=== PATIENT | female | born 1935 | race Caucasian/White ===

== ENCOUNTER 2017-04-17 11:15 | Inpatient (IN) ==
[2017-04-17] MEDS ORDERED: NS 1,000 ML IV ONE (11:42)
[2017-04-17] MEDS ORDERED: SALINE FLUSH 10ml SYRINGE IVF PRN (11:42)
--- NOTE | 2017-04-17 12:27 | Emergency Department Report ---
Weakness HPI - General Chief complaint: Weakness Stated complaint: weakness Time Seen by Provider: 04/17/17 11:30 Source: patient Mode of arrival: ambulatory Limitations: no limitations - History of Present Illness HPI Narrative: 81yo woman presented to the ER by for 'weakness'. Pt 'passed out' on Friday and fell; she had to be helped up by and son. Since then, pt has been weak, anorexic, and had trouble ambulating on her own. Pt refused to be evaluated; finally forced the issue today. Pt is livid about being in the ER. She does not want to be admitted, but would prefer a local admission rather than transport to [place]. Pt denies any new aches/pains today; has an extensive h/o pain and arthritis. Complaint: generalized weakness Onset (ago): day(s) (5) Duration: constant Location: generalized Migration: none Severity: severe Relieving factors: none Exacerbating factors: exertion Associated symptoms: loss of appetite - Related Data Home Medications Medication Instructions Recorded Confirmed Omeprazole 20 mg PO DAILY #0 11/21/11 04/17/17 Rosuvastatin [Crestor] 5 mg PO DAILY #0 11/21/11 04/17/17 Acetaminophen [Acetaminophen Extra 1,000 mg PO Q6H PRN 04/17/17 04/17/17 Strength] Amlodipine [Norvasc] 2.5 mg PO DAILY 04/17/17 04/17/17 Aspirin/Caffeine [Jenn Back & 2 tab PO Q4H PRN 04/17/17 04/17/17 Body Caplet] Atenolol/Chlorthalidone 1 tab PO DAILY 04/17/17 04/17/17 [Atenolol-Chlorthalidone 50-25] Hydrocodone/APAP 10/325 [[place] 1 tab PO QID PRN 04/17/17 04/17/17 10/325] Potassium Chloride [K-Tab ER] 20 meq PO BID 04/17/17 04/17/17 Allergies Allergy/AdvReac Type Severity Reaction Status Date / Time iodine Allergy RASH FROM Verified 04/17/17 11:39 IODINE PREP lovastatin Allergy myalgias Verified 04/17/17 11:39 simvastatin Allergy headache, Verified 04/17/17 11:39 myalgias Review of Systems All systems: reviewed and negative except as stated Constitutional: Reports: weakness. Denies: fever, chills, weight change, night sweats Neurological: Reports: as per HPI, weakness. Denies: headache, numbness, paresthesias, confusion, abnormal gait, vertigo [facility] Patient Stated Medical History Heart Murmur Yes Osteoarthritis Yes Clinic Medical History Hypokalemia (Acute Medical) Potassium 2.2 on admission Weakness (Acute Medical) Aortic stenosis (Chronic Medical) Syncope (Acute Medical) Hyponatremia (Acute Medical) Sodium 122 on admission - Social History Smoking status: Never smoker Physical Exam - Limitations Limitations: no limitations - General General appearance: alert, in no apparent distress, cachectic - Normal Exams: Head:: Normocephalic without trauma Eyes:: Pupils are PERRLA w/ EOMI, No scleral icterus, irritation, or foreign bodies noted ENMT:: No facial trauma, nasal exudates, pharyngeal erythema, or exudates are noted Neck:: Full range of motion, without adenopathy Chest/Respirations:: Clear all benites, with good airflow, and symmetry bilaterally Lymphatic:: No lymphadenopathy Musculoskeletal:: No tenderness, or deformity noted Integumentary:: No rashes, hives, or bruising noted Neurological:: Patient is alert, and oriented - ENT ENT exam: Present: mucous membranes dry - Cardiovascular Cardiovascular exam: Present: regular rate, normal rhythm, systolic murmur ( Holosystolic at right sternal border) - Psychiatric Psychiatric exam: Present: other (somnolent) Course - Consultations Consultation #1: [facility]: No pt by that name. Time: 12:25 Consultation #2: Dr. Blas: Pt will need admission to complete the workup to get echo and determine treatment. Requests admission to medicine. Presented to the ER prior to admission: pt has severe . Will need an echo while admitted. Time: 12:27 Consultation #3: Hospitalist: Will admit for further eval/treatment. Time: 12:38 Vital Signs Temperature 98.4 F 04/17/17 11:18 Pulse Rate 52 L 04/17/17 11:18 Respiratory Rate 16 04/17/17 11:18 Blood Pressure 144/67 H 04/17/17 11:18 Pulse Oximetry 95 04/17/17 11:18 Temperature 97.7 F 04/18/17 23:57 Pulse Rate 55 L 04/19/17 00:00 Respiratory Rate 16 04/18/17 23:57 Blood Pressure 94/52 04/18/17 23:57 Pulse Oximetry 97 04/18/17 23:57 Weakness - Differential Diagnosis Differential diagnosis: Likely: acute myocardial infarction, anemia, hypothyroidism, sepsis, dehydration - Medical Records Attestation: I reviewed the patient's medical records. - Lab Data Attestation: I reviewed the patient's lab results. Result diagrams: 04/19/17 04:29 04/19/17 04:29 Lab Results 04/17/17 04/17/17 04/17/17 Range/Units 11:53 11:53 11:53 WBC 7.6 (4.5-11.0) T/MM3 RBC 3.95 L (4.00-5.20) M/MM3 Hgb 11.3 L (12-16) GM/DL Hct 33.4 L (36-46) % MCV 84.6 (80-100) UM3 MCH 28.6 (26-34) UUG MCHC 33.8 (31-37) GM/DL RDW Std Deviation 40.3 (36.9-50.2) FL Plt Count 265 (130-400) T/MM3 MPV 8.6 L (9.4-12.4) UM3 Immature Gran % (Auto) 0.3 (0.0-0.5) % Neut % (Auto) 72.2 H (33-66) % Lymph % (Auto) 16.4 L (23-45) % Brule % (Auto) 11.0 H (0-9.0) % Eos % (Auto) 0.1 (0-4) % Baso % (Auto) 0.0 (0-2) % Neut # (Auto) 5.5 (1.8-7.7) T/MM3 Lymph # (Auto) 1.3 (1-4.8) T/MM3 Brule # (Auto) 0.8 (0-0.8) T/MM3 Eos # (Auto) 0.0 (0-0.5) T/MM3 Baso # (Auto) 0.0 (0-0.2) T/MM3 Abs Immat Gran (auto) 0.02 (0.00-0.03) T/MM3 D-Dimer 211 (0-230) NG/ML Turbidity < 20 (0-20) Sodium 122 L (134-144) MEQ/L Potassium 2.2 L* (3.6-5) MEQ/L Chloride 81 L (98-107) MEQ/L Carbon Dioxide 29 (22-30) MEQ/L Anion Gap 12 (5-15) MEQ/L BUN 22.0 H (7-17) MG/DL Creatinine 0.9 (0.7-1.2) MG/DL GFR Calculation 60 BUN/Creatinine Ratio 24 (6-26) RATIO Glucose 126 H (65-110) MG/DL Calculated Osmolality 241 L (261-280) MOSM/KG Calcium 10.2 (8.4-10.2) MG/DL Magnesium (1.6-2.3) MG/DL Total Bilirubin 0.60 (0.20-1.30) MG/DL Icterus Index < 2 (0-7) AST 29 (14-36) U/L ALT 33 (9-52) U/L Alkaline Phosphatase 55 (38-126) U/L Creatine Kinase 85 (30-135) U/L Troponin I 0.111 (0-0.12) ng/ml B-Natriuretic Peptide 540 H (0-175) pg/mL Total Protein 6.7 (6.3-8.2) G/DL Albumin 4.2 (3.5-5.0) G/DL Globulin 2.5 (2.4-3.6) G/DL Albumin/Globulin Ratio 1.7 (1.1-2.2) RATIO Plasma Lactate 1.2 (0.6-2.2) MMOL/L TSH 1.65 (0.47-4.68) MIU/L Specimen Hemolysis 19 (0-25) Ur Collection Type Urine Color (YELLOW) Urine Clarity Urine pH (5.0-8.0) Ur Specific [place] (1.015-1.025) Urine Protein (NEGATIVE) Urine Glucose (UA) (NEGATIVE) Urine Ketones (NEGATIVE) Urine Occult Blood (NEGATIVE) Urine Nitrate (NEGATIVE) Urine Bilirubin (NEGATIVE) Urine Urobilinogen (NORMAL) EU/DL Ur Leukocyte Esterase (NEGATIVE) Urinalysis Comment 04/17/17 04/17/17 Range/Units 11:53 12:47 WBC (4.5-11.0) T/MM3 RBC (4.00-5.20) M/MM3 Hgb (12-16) GM/DL Hct (36-46) % MCV (80-100) UM3 MCH (26-34) UUG MCHC (31-37) GM/DL RDW Std Deviation (36.9-50.2) FL Plt Count (130-400) T/MM3 MPV (9.4-12.4) UM3 Immature Gran % (Auto) (0.0-0.5) % Neut % (Auto) (33-66) % Lymph % (Auto) (23-45) % Brule % (Auto) (0-9.0) % Eos % (Auto) (0-4) % Baso % (Auto) (0-2) % Neut # (Auto) (1.8-7.7) T/MM3 Lymph # (Auto) (1-4.8) T/MM3 Brule # (Auto) (0-0.8) T/MM3 Eos # (Auto) (0-0.5) T/MM3 Baso # (Auto) (0-0.2) T/MM3 Abs Immat Gran (auto) (0.00-0.03) T/MM3 D-Dimer (0-230) NG/ML Turbidity (0-20) Sodium (134-144) MEQ/L Potassium (3.6-5) MEQ/L Chloride (98-107) MEQ/L Carbon Dioxide (22-30) MEQ/L Anion Gap (5-15) MEQ/L BUN (7-17) MG/DL Creatinine (0.7-1.2) MG/DL GFR Calculation BUN/Creatinine Ratio (6-26) RATIO Glucose (65-110) MG/DL Calculated Osmolality (261-280) MOSM/KG Calcium (8.4-10.2) MG/DL Magnesium 2.0 (1.6-2.3) MG/DL Total Bilirubin (0.20-1.30) MG/DL Icterus Index (0-7) AST (14-36) U/L ALT (9-52) U/L Alkaline Phosphatase (38-126) U/L Creatine Kinase (30-135) U/L Troponin I (0-0.12) ng/ml B-Natriuretic Peptide (0-175) pg/mL Total Protein (6.3-8.2) G/DL Albumin (3.5-5.0) G/DL Globulin (2.4-3.6) G/DL Albumin/Globulin Ratio (1.1-2.2) RATIO Plasma Lactate (0.6-2.2) MMOL/L TSH Cancelled (0.47-4.68) MIU/L Specimen Hemolysis (0-25) Ur Collection Type Urine, clean catch Urine Color Yellow (YELLOW) Urine Clarity Clear Urine pH 6.5 (5.0-8.0) Ur Specific [place] 1.010 L (1.015-1.025) Urine Protein Negative (NEGATIVE) Urine Glucose (UA) Negative (NEGATIVE) Urine Ketones Negative (NEGATIVE) Urine Occult Blood Negative (NEGATIVE) Urine Nitrate Negative (NEGATIVE) Urine Bilirubin Negative (NEGATIVE) Urine Urobilinogen 0.2 (NORMAL) EU/DL Ur Leukocyte Esterase Negative (NEGATIVE) Urinalysis Comment Microscopic not ind. - Radiology Data Attestation: I reviewed the patient's radiology results. FINDINGS: The lungs are clear. There is no abnormal airspace opacity, pleural effusion or pneumothorax identified. Overlying monitoring leads. The heart size, pulmonary vasculature and mediastinum are within normal limits. No significant skeletal abnormality is seen. IMPRESSION: No acute cardiopulmonary abnormality. - EKG Data EKG #1 EKG attestation: Yes: I reviewed and interpreted this EKG. EKG shows normal: sinus rhythm, axis, intervals Rate: bradycardia Voltage: c/w LVH Interpretation: nonspecific ST-T wave changes Disposition Clinical Impression: Hypokalemia, Weakness Aortic stenosis Qualifiers: Cardiac valve disease etiology: etiology unspecified Qualified Code(s): I35.0 - Nonrheumatic aortic (valve) stenosis [place] [facility] [place] Condition: Stable Time of Disposition: 12:47 - Seen By: physician
[2017-04-17] MEDS ORDERED: POTASSIUM CHLORIDE INJ 40 MEQ in NS 1,000 ML IV ONE (12:31)
--- NOTE | 2017-04-17 13:06 | XRay Report ---
Indication: Weakness PROCEDURE: XR chest 1V: Encounter: Initial Comparison: None FINDINGS: The lungs are clear. There is no abnormal airspace opacity, pleural effusion or pneumothorax identified. Overlying monitoring leads. The heart size, pulmonary vasculature and mediastinum are within normal limits. No significant skeletal abnormality is seen. IMPRESSION: No acute cardiopulmonary abnormality. .
--- OUTSIDE RECORDS SUMMARY | 2017-04-17 13:14 | External Medical Summary | Referral Summary ---
:1935 Author Organization [facility] Address [address] [place] [address] [place] [id number] Care Team Providers Name Role Phone Ole Alatorre Primary Care Physician Encounter VC Date(s): 11/11/14 - 11/11/14 [facility] [place] [phone] Discharge Diagnosis: Anemia of chronic disease Discharge Diagnosis: GERD Discharge Diagnosis: Need for pneumococcal vaccine Discharge Diagnosis: Obesity Discharge Diagnosis: Hypokalemia Discharge Diagnosis: Osteoarthritis Discharge Diagnosis: Benign essential hypertension Discharge Diagnosis: Mixed hyperlipidemia Discharge Disposition: 01-Home or Self Care Attending Physician: Belle Whyte APRN Admitting Physician: Belle Whyte APRN Vital Signs Most recent to oldest [Reference Range]: 1 Temperature Tympanic [36.6-38.1 degC] 35.7 degC *LOW* (11/11/14 8:56 AM) Peripheral Pulse Rate [60-100 bpm] 60 bpm (11/11/14 8:56 AM) Blood Pressure [90-140/60-90 mmHg] 134/70 mmHg (11/11/14 8:56 AM) Problem List Condition Effective Dates Status Health Status Informant Anemia of chronic disease(Confirmed) Active Aortic valve disorder Active (disorder)(Confirmed) Benign essential hypertension Active (disorder)(Confirmed) Cardiomegaly (disorder)(Confirmed) Active section(Confirmed)1 Resolved Constipation (disorder)(Confirmed) Active GERD(Confirmed) Active Hyperlipidemia(Confirmed) Resolved Hypertension(Confirmed) Resolved Hypokalemia(Confirmed) Active Mixed hyperlipidemia Active (disorder)(Confirmed) Obesity(Confirmed) Active patient Osteoarthritis(Confirmed) Active Pulmonary HTN Severe(Confirmed) Active 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) Total hip replacement - 2006 Resolved Right(Confirmed) 1x4 Allergies, Adverse Reactions, Alerts Substance Reaction Severity Status lovastatin Active simvastatin Active Medications amLODIPine 2.5 mg oral tablet 1 tabs, Oral, Daily, # 90 tabs, 3 Refill(s), Pharmacy: [facility], 1 tabs Oral Daily Start Date: 05/13/14 Status: OrderedAspir 81 81 mg, Oral, Daily, 1 tab, 0 Refill(s) Start Date: 11/11/14 Status: Orderedatenolol-chlorthalidone 50 mg-25 mg oral tablet 1 tabs, Oral, Daily, # 90 tabs, 3 Refill(s), Pharmacy: [facility] Start Date: 01/23/15 Status: OrderedCrestor 5 mg oral tablet 1 tabs, Oral, Daily, DUE FOR LAB/APPT IN MAY, # 90 tabs, 3 Refill(s), Pharmacy: [facility],1 tabs Oral Daily,x90 days,Instr:DUE FOR LAB/APPT IN MAY Start Date: 05/13/14 Stop Date: 05/08/15 Status: OrderedNorco 10 mg-325 mg oral tablet 1-2, Oral, q6hr, as needed for pain, not to exceed 4000 mg acetaminophen per day MONTH SUPPLY, # 240 tabs, 0 Refill(s) Start Date: 05/22/15 Status: Orderedomeprazole 20 mg oral delayed release tablet 20 mg 1 tabs, Oral, Daily, # 90 tabs, 3 Refill(s), Pharmacy: [facility], 1 tabs Oral Daily Start Date: 01/23/15 Status: Orderedpotassium chloride 20 mEq oral tablet, extended release 20 mEq 1 tabs, Oral, Daily, # 90 tabs, 3 Refill(s), Pharmacy: [facility], 1 tabs Oral Daily Start Date: 01/23/15 Status: OrderedStool Softner Stool Softner, 4 tabs, Oral, Daily, PRN for constipation, 0 Refill(s) Start Date: 12/16/14 Status: Ordered Results No data available for this section Immunizations Vaccine Date Refusal Reason tetanus/diphth/pertuss (Tdap) adult/adol 03/24/12 influenza virus vaccine, inactivated 04/24/15 influenza virus vaccine, inactivated 05/13/14 influenza virus vaccine, live 11/26/13 influenza virus vaccine, live 03/13/12 pneumococcal 13-valent conjugate vaccine 11/11/14 pneumococcal 23-polyvalent vaccine 03/16/09 tetanus-diphth toxoids (Td) adult/adol 08/06/99 Procedures Procedure Date Related Diagnosis Body Site 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 Continue to monitor. Benign essential hypertension Continue current medications without change. Goal blood pressure patient is less than 140/90. GERD Continue current regimen. Encouraged patient to continue to work on healthy eating avoiding foods exacerbate her symptoms. Hypokalemia Continue potassium area discussed better ways to take it versus switching to K fizzy. Patient wants to continue current prescription for now. Mixed hyperlipidemia Patient had approximately 4 months of Crestor left. She wants to finish that before changing. Requested she call the office on a prescription is near empty and will change t o Lipitor 20 mg a day. Has had myalgias in the past to lovastatin and simvastatin. CDM report card completed and reviewed with patient. Last labs reviewed with patient. Recommendations discussed. Copy provided. Plan follow-up in 6- 7 months with fasting lipids CMP and CBC prior to office visit. Need for pneumococcal vaccine Counseled on Prevnar 13. Given by nursing. Patient not interested in Zostavaxor further preventative care. Ordered: pneumococcal 13-valent conjugate vaccine, 0.5 mL, IntraMuscular, Daily, Order Duration: 1 doses, First Dose: 11/11/14 9:30:00 CDT, Stop Date: 11/12/14 8:59: 00 CDT, Form: Syringe Obesity Encourage a 10 pound weight loss in the next 6 months. Osteoarthritis Continue hydrocodone. Prescription provided. Orders: HYDROcodone-acetaminophen, 1-2, Oral, q6hr, as needed for pain, not to exceed 4000 mg acetaminophen per day, # 240 tabs, 0 Refill(s)
--- OUTSIDE RECORDS SUMMARY | 2017-04-17 13:14 | External Medical Summary | Referral Summary ---
:1935 Author Organization [facility] Address [address] [place] [address] Care Team Providers Name Role Phone Ole Alatorre Primary Care Physician Encounter VC Date(s): 12/16/14 - 12/16/14 [facility] [address] [place] [address]- [place] Discharge Diagnosis: Mitral valve prolapse Discharge Diagnosis: Pulmonary hypertension Discharge Diagnosis: Hypertension Discharge Diagnosis: Dyslipidemia Discharge Diagnosis: Aortic valve disorder Discharge Disposition: 01-Home or Self Care Attending Physician: Levy Phoenix MD Admitting Physician: Levy Phoenix MD Vital Signs Most recent to oldest [Reference Range]: 1 Peripheral Pulse Rate [60-100 bpm] 60 bpm (12/16/14 11:03 AM) Blood Pressure [90-140/60-90 mmHg] 112/66 mmHg (12/16/14 11:03 AM) Problem List Condition Effective Dates Status [...] Daily, # 90 tabs, 3 Refill(s), Pharmacy: [facility], 1 tabs Oral Daily Start Date: 05/13/14 Status: OrderedAspir 81 81 mg, Oral, Daily, 1 tab, 0 Refill(s) Start Date: 11/11/14 Status: Orderedatenolol-chlorthalidone 50 mg-25 mg oral tablet 1 tabs, Oral, Daily, # 90 tabs, 3 Refill(s), Pharmacy: [facility] Start Date: 01/23/15 Status: OrderedCrestor 5 mg oral tablet 1 tabs, Oral, Daily, DUE FOR LAB/APPT IN MAY, # 90 tabs, 3 Refill(s), Pharmacy: [facility],1 tabs Oral Daily,x90 days,Instr:DUE FOR LAB/APPT IN MAY Start Date: 05/13/14 Stop Date: 05/08/15 Status: OrderedNorco 10 mg-325 mg oral tablet 1-2, Oral, q6hr, as needed for pain, not to exceed 4000 mg acetaminophen per day , # 240 tabs, 0 Refill(s) Start Date: 03/28/15 Status: Orderedomeprazole 20 mg oral delayed release tablet 20 mg 1 tabs, Oral, Daily, # 90 tabs, 3 Refill(s), Pharmacy: [facility], 1 tabs Oral Daily Start Date: 01/23/15 Status: Orderedpotassium chloride 20 mEq oral tablet, extended release 20 mEq 1 tabs, Oral, Daily, # 90 tabs, 3 Refill(s), Pharmacy: [facility], 1 tabs Oral Daily Start Date: 01/23/15 Status: OrderedStool Softner Stool Softner, 4 tabs, Oral, Daily, PRN for constipation, 0 Refill(s) Start Date: 12/16/14 Status: Ordered Results No data available for this section Immunizations Vaccine Date Refusal Reason tetanus/diphth/pertuss (Tdap) adult/adol 03/24/12 influenza virus vaccine, inactivated 05/13/14 influenza virus vaccine, live 04/27/13 influenza virus vaccine, live 03/13/12 pneumococcal 13-valent [...] smoker Assessment and Plan Extracted from: Title: Ambulatory Patient Education Author: Levy Phoenix MD Date: 12/16/14 Family Medicine Coronary Artery Disease, Risk Factors Research has shown that the risk of developing coronary artery disease (CAD) and having a heart attack increases with each factor you have. RISK FACTORS YOU CANNOT CHANGE Your age. Your risk goes up as you get older. Most heart attacks happen to people over the age of 65. Gender. Men have a greater risk of heart attack than women, and they have attacks earlier in life. However, women are more likely to from a heart attack. Heredity. Children of parents with heart disease are more likely to develop it themselves. Race. Americans and other ethnic groups have a higher risk, possibly because of high blood pressure, a tendency toward obesity, and diabetes. Your family. Most people with a strong family history of heart disease have one or more other risk factors. RISK FACTORS YOU CAN CHANGE Exposure to tobacco smoke. Even secondhand smoke greatly increases the risk for heart disease. High blood cholesterol may be lowered with changes in diet, activity, and medicines. High blood pressure makes the heart work harder. This causes the heart muscles to become thick and, eventually, weaker. It also increases your risk of stroke, heart attack, and kidney or heart failure. Physical inactivity is a risk factor for CAD. Regular physical activity helps prevent heart and blood vessel disease. Exercise helps control blood cholesterol, diabetes, obesity, and it may help lower blood pressure in some people. Excess body fat, especially belly fat, increases the risk of heart disease and stroke even if there are no other risk factors. Excess weight increases the heart's workload and raises blood pressure and blood cholesterol. Diabetes seriously increases your risk of developing CAD. If you have diabetes, you should work with your caregiver to manage it and control other risk factors. OTHER RISK FACTORS FOR CAD How you respond to stress. Drinking too much alcohol may raise blood pressure, cause heart failure, and lead to stroke. Total cholesterol greater than 200 milligrams. HDL (good) cholesterol less than 40 milligrams. HDL helps keep cholesterol from building up in the anderson of the arteries. PREVENTING CAD Maintain a healthy weight. Exercise or do physical activity. Eat a heart-healthy diet low in fat and salt and high in fiber. Control your blood pressure to keep it below 120 over 80. Keep your cholesterol at a level that lowers your risk. Manage diabetes if you have it. Stop smoking. Learn how to manage stress. HEART SMART SUBSTITUTIONS Instead of whole or 2% milk and cream, use skim milk. Instead of fried foods, eat baked, steamed, boiled, broiled, or microwaved foods. Instead of lard, butter, palm and coconut oils, cook with unsaturated vegetable oils, such as corn, olive, canola, safflower, sesame, soybean, sunflower, or peanut. Instead of fatty cuts of meat, eat lean cuts of meat or cut off the fatty parts. Instead of 1 whole egg in recipes, use 2 egg whites. Instead of sauces, butter, and salt, season vegetables with herbs and spices. Instead of regular hard and processed cheeses, eat low-fat, low-sodium cheeses. Instead of salted potato chips, choose low-fat, unsalted tortilla and potato chips and unsalted pretzels and popcorn. Instead of sour cream and mayonnaise, use plain low-fat yogurt, low-fat cottage cheese, or low-fat or "light" sour cream. FOR MORE INFORMATION National [employer] [place]: www.nhlbi.nih.gov/health/hearttruth [place] [employer]: www.heart.org/HEARTORG Document Released: 08/08/2004 Document Revised: 08/10/2012 Document Reviewed: 08/03/2008 Exit[employer] Patient Information 2014 [employer] [facility]. No follow up information was provided. Extracted from: Title: Office Visit Note Author: Levy Phoenix MD Date: 12/16/14 Assessment/Plan 1.Aortic valve disorder Mild aortic stenosis, with last echocardiogram from November 2013 with mean gradient of 14 mmHg. No current symptoms, and we discussed the natural history of aortic stenosis as well as symptoms to watch for. 2.Mitral valve prolapse Mild mitral prolapse with trace mitral regurgitation, currently free of any symptoms of chest pain or palpitations. We also discussed the natural history of mitral valve prolapse. 3.Pulmonary hypertension Mild pulmonary hypertension on last echocardiogram , though he previously had been severe on echocardiogram from 2013. She has been free of any symptoms. There has been s ome chamber enlargements of the left and right atria, and right ventricle. No obvious is here PFO seen on prior echocardiograms, but this will be a consideration for the future if pulmonate pressures worsen. 4.Dyslipidemia Cholesterol has been reasonable. Continue Crestor for now. Heart healthy eating and consistent exercise discussed. Exercise has been limited by joint pains. 5.Hypertension Blood pressure has been under good control. Continue current medical therapy. Low-salt diet and consistent exercise encouraged. Referrals to Other Providers Referred by: Levy Phoenix MD
--- OUTSIDE RECORDS SUMMARY | 2017-04-17 13:14 | External Medical Summary | Referral Summary ---
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 Discharge Disposition: 01-Home or Self Care Attending Physician: Belle Whyte APRN Admitting Physician: Belle Whyte APRN Vital Signs Most recent to oldest [Reference Range]: 1 Temperature Tympanic [36.6-38.1 degC] 36 degC *LOW* (06/10/16 8:48 AM) Peripheral Pulse Rate [60-100 bpm] 68 bpm (06/10/16 8:48 AM) Blood Pressure [90-140/60-90 mmHg] 122/64 mmHg (06/10/16 8:48 AM) Problem List Condition Effective Dates Status Health Status Informant Anemia of chronic disease(Confirmed) Active Aortic valve disorder Active (disorder)(Confirmed) Benign essential hypertension Active (disorder)(Confirmed) Cardiomegaly (disorder)(Confirmed) Active section(Confirmed)1 Resolved Constipation (disorder)(Confirmed) Active GERD(Confirmed) Active Hyperlipidemia(Confirmed) Resolved Hypertension(Confirmed) Resolved Hypokalemia(Confirmed) Active Mixed hyperlipidemia Active (disorder)(Confirmed) Obesity(Confirmed) < 11/11/14 Resolved Primary osteoarthritis involving Active multiple joints(Confirmed) Prediabetes(Confirmed) Active Pulmonary HTN Severe(Confirmed) Active Tricuspid valve Active regurgitation(Confirmed) 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) Total hip replacement - 2006 Resolved Right(Confirmed) 1x4 Allergies, Adverse Reactions, Alerts Substance Reaction Severity Status lovastatin Active simvastatin Active Medications amLODIPine 2.5 mg oral tablet 2.5 mg 1 tabs, Oral, Daily, # 90 Each, 4 Refill(s), Pharmacy: [facility], 1 tabs Oral Daily Start Date: 04/16/16 Status: OrderedAspir 81 81 mg, Oral, Daily, 1 tab, 0 Refill(s) Start Date: 11/11/14 Status: Orderedatenolol-chlorthalidone 50 mg-25 mg oral tablet See Instructions, 1/2 tab Oral Daily, # 30 Each, 3 Refill(s), Pharmacy: [facility] Start Date: 06/13/15 Status: OrderedCrestor 5 mg oral tablet 5 mg 1 tabs, Oral, Daily, # 90 tabs, 3 Refill(s), Pharmacy: [facility], 1 tabs Oral Daily,x90 days Start Date: 06/13/15 Stop Date: 06/07/16 Status: OrderedNorco 10 mg-325 mg oral tablet 1-2, Oral, q6hr, as needed for pain, not to exceed 4000 mg acetaminophen per day May fill 05/05/16 30 day supply, # 240 tabs, 0 Refill(s) Start Date: 06/04/16 Status: Orderedomeprazole 20 mg oral delayed release capsule 20 mg 1 caps, Oral, Daily, # 90 caps, 3 Refill(s), [facility], 1 caps Oral Daily Start Date: 06/10/16 Status: Orderedpotassium chloride 20 mEq oral tablet, extended release 20 mEq 1 tabs, Oral, BID, # 180 tabs, 3 Refill(s), Pharmacy: [facility], 1 tabs Oral BID Start Date: 03/11/16 Status: OrderedPrevacid 30 mg oral delayed release capsule 30 mg 1 caps, Oral, Daily, # 90 caps, 3 Refill(s), Pharmacy: [facility], 1 caps Oral Daily Start Date: 03/11/16 Status: OrderedStool Softner Stool Softner, 4 tabs, Oral, Daily, PRN for constipation, 0 Refill(s) Start Date: 12/16/14 Status: Ordered Results No data available for this section Immunizations Given and Recorded Vaccine Date Status Refusal Reason tetanus/diphth/pertuss (Tdap) adult/adol 03/24/12 Recorded influenza virus vaccine, inactivated 03/11/16 Given influenza virus vaccine, inactivated 04/24/15 Given influenza virus vaccine, inactivated 05/13/14 Recorded influenza virus vaccine, live 04/27/13 Given influenza virus vaccine, live 03/13/12 Given pneumococcal 13-valent conjugate vaccine 11/11/14 Given pneumococcal 23-polyvalent vaccine 03/16/09 Recorded tetanus-diphth toxoids (Td) adult/adol 08/06/99 Given Procedures Procedure Date Related Diagnosis Body Site Colonoscopy 05/07/12 Esophagogastroduodenoscopy 05/07/12 Colonoscopy 05/04/12 Total hip replacement - left 2011 Total hip replacement - right 2006 DEXA - Dual energy X-ray photon absorptiometry 08/24/03 Mammogram 08/24/03 section 4x Esophagogastroduodenoscopy Tonsillectomy Social History Social History Type Response Smoking Status Former smoker Assessment and Plan Extracted from: Title: Office Visit Note-CDM Author: Belle Whyte CLINICAL STAFF EDUCATOR Date: 06/10/16 Assessment/Plan 1.Anemia of chronic disease Overall stable. Continue to monitor periodically. Add iron levelon next lab in 3 months. Labs reviewed and discussed with patient. Ordered: CBC w/ Differential Iron Level Office Visit Level 4 Est 96820 2.Benign essential hypertension (disorder) Well controlled with current regimen. No changes. Continue to monitor periodically at home. Goal is less than 140/90. Ordered: Comprehensive Metabolic Panel Office Visit Level 4 Est 77960 3.GERD Controlled with PPI.Switch back from Prevacid to Prilosec. If she notes any changes she can let us know. Ordered: Office Visit Level 4 Est 79427 4.Hypokalemia Adequately supplemented. Continue Potassium supplement twice a day. Ordered: Office Visit Level 4 Est 82266 5.Mixed hyperlipidemia Well controlled with current statin therapy. No changes. Ordered: Office Visit Level 4 Est 20275 6.Primary osteoarthritis involving multiple joints Adequately controlled. Continue Martin for pain relief. Using appropriately. Ordered: Office Visit Level 4 Est 27789 Discussed Zostavax.Tooexpensive. Plan follow-up in 6 months or sooner if medical needs arise.
--- OUTSIDE RECORDS SUMMARY | 2017-04-17 13:16 | External Medical Summary | Referral Summary ---
:1935 Author Organization [facility] Address [address] [place] [address] Care Team Providers Name Role Phone Ole Alatorre Primary Care Physician Encounter [facility] Date(s): 12/16/14 - 12/16/14 [facility] [address] [place] [address] [place] Discharge Diagnosis: Mitral valve [...] Daily, # 90 tabs, 3 Refill(s), Pharmacy: [facility], 1 tabs Oral Daily Start Date: 05/13/14 Status: OrderedAspir 81 81 mg, Oral, Daily, 1 tab, 0 Refill(s) Start Date: 11/11/14 Status: Orderedatenolol-chlorthalidone 50 mg-25 mg oral tablet 1 tabs, Oral, Daily, # 90 tabs, 3 Refill(s), Pharmacy: [facility] Start Date: 01/23/15 Status: OrderedCrestor 5 mg oral tablet 1 tabs, Oral, Daily, DUE FOR LAB/APPT IN MAY, # 90 tabs, 3 Refill(s), Pharmacy: [facility],1 tabs Oral Daily,x90 days,Instr:DUE FOR LAB/APPT [...] Daily, # 90 tabs, 3 Refill(s), Pharmacy: [facility], 1 tabs Oral Daily Start Date: 01/23/15 Status: Orderedpotassium chloride 20 mEq oral tablet, extended release 20 mEq 1 tabs, Oral, Daily, # 90 tabs, 3 Refill(s), Pharmacy: [facility], 1 tabs Oral Daily [...] MORE INFORMATION National Heart Lung and Blood [place]: www.nhlbi.nih.gov/health/hearttruth [place] [employer]: www.heart.org/HEARTORG Document Released: 08/08/2004 Document Revised: 08/10/2012 Document Reviewed: 08/03/2008 ExitCare Patient Information 2014 [employer] [facility]. No follow up information was provided. [...]
--- OUTSIDE RECORDS SUMMARY | 2017-04-17 13:16 | External Medical Summary | Referral Summary ---
:1935 Author Organization [facility] Address [address] [place] [address] Care Team Providers Name Role Phone Ole Alatorre Primary Care Physician Encounter [facility] [id number] Date(s): 12/16/14 - 12/16/14 [facility] [address] [place] [address] [place] Discharge Diagnosis: Mitral valve [...] Daily, # 90 tabs, 3 Refill(s), Pharmacy: [facility], 1 tabs Oral Daily Start Date: 05/13/14 Status: OrderedAspir 81 81 mg, Oral, Daily, 1 tab, 0 Refill(s) Start Date: 11/11/14 Status: Orderedatenolol-chlorthalidone 50 mg-25 mg oral tablet 1 tabs, Oral, Daily, # 90 tabs, 3 Refill(s), Pharmacy: [facility] Start Date: 01/23/15 Status: OrderedCrestor 5 mg oral tablet 1 tabs, Oral, Daily, DUE FOR LAB/APPT IN MAY, # 90 tabs, 3 Refill(s), Pharmacy: [facility],1 tabs Oral Daily,x90 days,Instr:DUE FOR LAB/APPT [...] Daily, # 90 tabs, 3 Refill(s), Pharmacy: [facility], 1 tabs Oral Daily Start Date: 01/23/15 Status: Orderedpotassium chloride 20 mEq oral tablet, extended release 20 mEq 1 tabs, Oral, Daily, # 90 tabs, 3 Refill(s), Pharmacy: [facility], 1 tabs Oral Daily [...] MORE INFORMATION National Heart Lung and Blood [place]: www.nhlbi.nih.gov/health/hearttruth [place] [employer]: www.heart.org/HEARTORG Document Released: 08/08/2004 Document Revised: 08/10/2012 Document Reviewed: 08/03/2008 ExitCare Patient Information 2014 [employer] [facility]. No follow up [...]
--- OUTSIDE RECORDS SUMMARY | 2017-04-17 13:16 | External Medical Summary | Referral Summary ---
:1935 Author Organization [facility] Address [address] [place] [address] [place] [address] Care Team Providers Name Role Phone Ole Alatorre Primary Care Physician Encounter [facility] Date(s): 11/11/14 - 11/11/14 [facility] [place] [address] [place] Discharge Diagnosis: [...] Daily, # 90 tabs, 3 Refill(s), Pharmacy: [facility] Start Date: 01/23/15 Status: OrderedCrestor 5 mg oral tablet 1 tabs, Oral, Daily, DUE FOR LAB/APPT IN MAY, # 90 tabs, 3 Refill(s), Pharmacy: [facility],1 tabs Oral Daily,x90 days,Instr:DUE FOR LAB/APPT [...] Daily, # 90 tabs, 3 Refill(s), Pharmacy: [facility], 1 tabs Oral Daily Start Date: 01/23/15 Status: Orderedpotassium chloride 20 mEq oral tablet, extended release 20 mEq 1 tabs, Oral, Daily, # 90 tabs, 3 Refill(s), Pharmacy: [facility], 1 tabs Oral Daily [...] Title: Office Visit Note-CMD Author: Belle Whyte SETTER MACHINE Date: 11/11/14 Assessment/Plan Anemia of chronic disease [...]
--- OUTSIDE RECORDS SUMMARY | 2017-04-17 13:16 | External Medical Summary | Referral Summary ---
:1935 Author Organization [facility] Address [address] [place] [address] [place] [address] Care Team Providers Name Role Phone Ole Alatorre Primary Care Physician Encounter [facility] Date(s): 04/24/15 - 04/24/15 [facility] [place] [address] [place] Discharge Disposition: 01-Home or Self Care Attending Physician: Ole Alatorre MD Admitting Physician: Ole Alatorre MD Vital Signs No data available for this section Problem List Condition Effective Dates Status Health [...] Daily, # 90 tabs, 3 Refill(s), Pharmacy: [facility] Start Date: 01/23/15 Status: OrderedCrestor 5 mg oral tablet 1 tabs, Oral, Daily, DUE FOR LAB/APPT IN MAY, # 90 tabs, 3 Refill(s), Pharmacy: [facility],1 tabs Oral Daily,x90 days,Instr:DUE FOR LAB/APPT IN MAY Start Date: 05/13/14 Stop Date: 05/08/15 Status: OrderedNorco 10 mg-325 mg oral tablet 1-2, Oral, q6hr, as needed for pain, not to exceed 4000 mg acetaminophen per day MONTH SUPPLY, # 240 tabs, 0 Refill(s) Start Date: 04/24/15 Status: Orderedomeprazole 20 mg oral delayed release tablet 20 mg 1 tabs, Oral, Daily, # 90 tabs, 3 Refill(s), Pharmacy: [facility], 1 tabs Oral Daily Start Date: 01/23/15 Status: Orderedpotassium chloride 20 mEq oral tablet, extended release 20 mEq 1 tabs, Oral, Daily, # 90 tabs, 3 Refill(s), Pharmacy: [facility], 1 tabs Oral Daily [...] Smoking Status Former smoker Assessment and Plan No data available for this section
--- OUTSIDE RECORDS SUMMARY | 2017-04-17 13:17 | External Medical Summary | Referral Summary ---
:1935 Author Organization [facility] Address [address] [place] [address] Care Team Providers Name Role Phone Ole Alatorre Primary Care Physician Encounter [facility] [id number] Date(s): 10/16/15 - 10/16/15 [facility] [address] [place] [address] [place] Discharge Diagnosis: Benign essential hypertension (disorder) Discharge Diagnosis: Hyperlipidemia Discharge Diagnosis: Aortic valve disorder (disorder) Discharge Diagnosis: Tricuspid valve regurgitation Discharge Disposition: 01-Home or Self Care Attending Physician: King Mcdaniel MD Admitting Physician: King Mcdaniel MD Vital Signs Most recent to oldest [Reference Range]: 1 Peripheral Pulse Rate [60-100 bpm] 56 bpm *LOW* (10/16/15 12:58 PM) Blood Pressure [90-140/60-90 mmHg] 128/60 mmHg (10/16/15 12:58 PM) Problem List Condition Effective Dates Status Health Status Informant Anemia of chronic disease(Confirmed) Active Aortic valve disorder Active (disorder)(Confirmed) Benign essential hypertension Active (disorder)(Confirmed) Cardiomegaly (disorder)(Confirmed) Active section(Confirmed)1 Resolved Constipation (disorder)(Confirmed) Active Hyperlipidemia(Confirmed) Resolved Hypertension(Confirmed) Resolved Hypokalemia(Confirmed) Active Mixed hyperlipidemia Active (disorder)(Confirmed) Obesity(Confirmed) Active patient Osteoarthritis(Confirmed) Active Pulmonary HTN Severe(Confirmed) Active 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) Total hip replacement - 2006 Resolved Right(Confirmed) 1x4 Allergies, Adverse Reactions, Alerts Substance Reaction Severity Status lovastatin Active simvastatin Active Medications amLODIPine 2.5 mg oral tablet See Instructions, TAKE 1 TABLET EVERY DAY, # 90 tabs, 3 Refill(s), Pharmacy: [facility], TAKE 1 TABLET EVERY DAY Start Date: 06/13/15 Status: OrderedAspir 81 81 mg, Oral, Daily, 1 tab, 0 Refill(s) Start Date: 11/11/14 Status: Orderedatenolol-chlorthalidone 50 mg-25 mg oral tablet 1 tabs, Oral, Daily, # 90 tabs, 3 Refill(s), Pharmacy: [facility] Start Date: 06/13/15 Status: OrderedCrestor 5 mg oral tablet 5 mg 1 tabs, Oral, Daily, # 90 tabs, 3 Refill(s), Pharmacy: [facility], 1 tabs Oral Daily,x90 days Start Date: 06/13/15 Stop Date: 06/07/16 Status: OrderedNorco 10 mg-325 mg oral tablet 1-2, Oral, q6hr, as needed for pain, not to exceed 4000 mg acetaminophen per day MONTH SUPPLY, # 240 tabs, 0 Refill(s) Start Date: 09/18/15 Status: Orderedomeprazole 20 mg oral delayed release tablet 20 mg 1 tabs, Oral, Daily, # 90 tabs, 3 Refill(s), Pharmacy: [facility], 1 tabs Oral Daily Start Date: 06/13/15 Status: Orderedpotassium chloride 20 mEq oral tablet, extended release 20 mEq 1 tabs, Oral, BID, # 360 tabs, 3 Refill(s), Pharmacy: [facility], 1 tabs Oral Daily Start Date: 01/23/15 Stop Date: 12/04/16 Status: OrderedStool Softner Stool Softner, 4 tabs, [...] 23-polyvalent vaccine 03/16/09 tetanus-diphth toxoids (Td) adult/adol 3/6/00 Procedures Procedure Date Related Diagnosis Body Site Total hip replacement - left 2011 Total hip replacement - right 2006 DEXA - Dual energy X-ray photon absorptiometry 08/24/03 Mammogram 08/24/03 section 4x Esophagogastroduodenoscopy Tonsillectomy Social History Social History Type Response Smoking Status Former smoker Assessment and Plan Extracted from: Title: Ambulatory Patient Education Author: King Mcdaniel MD Date: Family Medicine Heart Murmur A heart murmur is an extra sound heard by your health care provider when listening to your heart with a device called a stethoscope. The sound comes from turbulence when blood flows through the heart an d may be a "hum" or "whoosh" sound heard when the heart beats. There are two types of heart murmurs: Innocent murmurs. Most people with this type of heart murmur do not have a heart problem. Many children have innocent heart murmurs. Your health care provider may suggest some basic testing to kn ow whether your murmur is an innocent murmur. If an innocent heart murmur is found, there is no need for further tests or treatment and no need to restrict activities or stop playing sports. Abnormal murmurs. These types of murmurs can occur in children and adults. In children, abnormal heart murmurs are typically caused from heart defects that are present at (congenital). In a dults, abnormal murmurs are usually from heart valve problems caused by disease , infection, or aging. CAUSES Normally, these valves open to let blood flow through or out of your heart and then shut to keep it from flowing backward. If they do not work properly, you could have: RegurgitationWhen blood leaks back through the valve in the wrong direction. Mitral valve prolapseWhen the mitral valve of the heart has a loose flap and does not close tightly. StenosisWhen the valve does not open enough and blocks blood flow. SIGNS AND SYMPTOMS Innocent murmurs do not cause symptoms, and many people with abnormal murmurs may or may not have symptoms. If symptoms do develop, they may include: Shortness of breath. Blue coloring of the skin, especially on the fingertips. Chest pain. Palpitations, or feeling a fluttering or skipped heartbeat. Fainting. Persistent cough. Getting tired much faster than expected. DIAGNOSIS A heart murmur might be heard during a sports physical or during any type of examination. When a murmur is heard, it may suggest a possible problem. When this happens, your health care provider may ask you to see a internet network specialist (mechanical engineering advisor). You may also be asked to have one or more heart tests. In these cases, testing may vary depending on what your health care provider heard. Tests for a heart murmur may include: Electrocardiogram. Echocardiogram. MRI. For children and adults who have an abnormal heart murmur and want to play sports, it is important to complete testing, review test results, and receive recommendations from your health care provider. I f heart disease is present, it may not be safe to play. TREATMENT Innocent murmurs require no treatment or activity restriction. If an abnormal murmur represents a problem with the heart, treatment will depend on the exact nature of the problem. In these cases, medici ne or surgery may be needed to treat the problem. HOME CARE INSTRUCTIONS If you want to participate in sports or other types of strenuous physical activity, it is important to discuss this first with your health care provider. If the murmur represents a problem with the hear t and you choose to participate in sports, there is a small chance that a serious problem (including sudden ) could result. SEEK MEDICAL CARE IF: You feel that your symptoms are slowly worsening. You develop any new symptoms that cause concern. You feel that you are having side effects from any medicines prescribed. SEEK IMMEDIATE MEDICAL CARE IF: You develop chest pain. You have shortness of breath. You notice that your heart beats irregularly often enough to cause you to worry. You have fainting spells. Your symptoms suddenly get worse. This information is not intended to replace advice given to you by your health care provider. Make sure you discuss any questions you have with your health care provider. Document Released: 06/26/2005 Document Revised: 03/07/2015 Document Reviewed: 01/24/2014 [facility] Patient Information 2015 [employer]. No follow up information was provided. Extracted from: Title: Office Visit Note Author: King Mcdaniel MD Date: 10/16/15 Assessment/Plan 1.Aortic valve disorder (disorder) The patient has mild aortic valve stenosisbased on the echocardiogramwas performed inJ2013. We will recheck the patient's echocardiogram as it has been about 2 years since the previous one. Ordered: Office Visit Level 4 Est 04493 2.Hyperlipidemia The patient is currently tolerating Crestor well without any side effects of myalgias. Her most recentlaboratory data in June 2015 demonstrated a total cholesterol 173, tri glycerides of 130,HDL 57, LDL of 90. No medication adjustments will be performed. Ordered: Office Visit Level 4 Est 64131 3.Benign essential hypertension (disorder) The patient blood pressure is well controlled under the current regimen therefore no adjustments will take place. Ordered: Office Visit Level 4 Est 81448 4.Tricuspid valve regurgitation The patient has moderate tricuspid valve regurgitation however she is euvolemic on physical examination. We will recheck echocardiogram to evaluate the severity of her mitral valve regurgitation. Ordered: Office Visit Level 4 Est 65821 Request for Cardiovascular Echo The patient will follow-up with us in the office in 6 months from today or sooner depending on the results of her echocardiogram. Thank you for allowing us to be involved in the care of Ms. Bermudez.
--- OUTSIDE RECORDS SUMMARY | 2017-04-17 13:17 | External Medical Summary | Referral Summary ---
:1935 Author Organization [facility] [address] [place] [address] Care Team Providers Name Role Phone Ole Alatorre Primary Care Physician Encounter Date(s): 06/13/15 - 06/13/15 [facility] [address] [place] [phone] Discharge Diagnosis: Hypokalemia Discharge Diagnosis: Osteoarthritis Discharge Diagnosis: Benign essential hypertension Discharge Diagnosis: Anemia of chronic disease Discharge Diagnosis: GERD without esophagitis Discharge Diagnosis: Mixed hyperlipidemia Discharge Diagnosis: Aortic valve disorder Discharge Diagnosis: Thickened nail Discharge Disposition: 01-Home or Self Care Attending Physician: Belle Whyte APRN Admitting Physician: Belle Whyte APRN Vital Signs Most recent to oldest [Reference Range]: 1 Temperature Tympanic [36.6-38.1 degC] 36.3 degC *LOW* (06/13/15 10:14 AM) Peripheral Pulse Rate [60-100 bpm] 64 bpm (06/13/15 10:14 AM) Blood Pressure [90-140/60-90 mmHg] 130/74 mmHg (06/13/15 10:14 AM) Problem List Condition Effective Dates Status [...] DAY, # 90 tabs, 3 Refill(s), Pharmacy: [facility], TAKE 1 TABLET EVERY DAY Start Date: 06/13/15 Status: OrderedAspir 81 81 mg, Oral, Daily, 1 tab, 0 Refill(s) Start Date: 11/11/14 Status: Orderedatenolol-chlorthalidone 50 mg-25 mg oral tablet 1 tabs, Oral, Daily, # 90 tabs, 3 Refill(s), Pharmacy: [facility] Start Date: 06/13/15 Status: OrderedCrestor 5 mg oral tablet 5 mg 1 tabs, Oral, Daily, # 90 tabs, 3 Refill(s), Pharmacy: [facility], 1 tabs Oral Daily,x90 days Start Date: 06/13/15 Stop Date: 06/07/16 Status: OrderedLamISIL 250 mg oral tablet 250 mg 1 tabs, Oral, Daily, X 12 weeks, # 84 tabs, 0 Refill(s), Pharmacy: [facility], 1 tabs Oral Daily,x12 weeks Start Date: 06/13/15 Stop Date: 09/05/15 Status: OrderedNorco 10 mg-325 mg oral tablet 1-2, Oral, q6hr, as needed for pain, not to exceed 4000 mg acetaminophen per day MONTH SUPPLY, # 240 tabs, 0 Refill(s) Start Date: 06/13/15 Status: Orderedomeprazole 20 mg oral delayed release tablet 20 mg 1 tabs, Oral, Daily, # 90 tabs, 3 Refill(s), Pharmacy: [facility], 1 tabs Oral Daily Start Date: 06/13/15 Status: Orderedpotassium chloride 20 mEq oral tablet, extended release 20 mEq 1 tabs, Oral, BID, # 360 tabs, 3 Refill(s), Pharmacy: [facility], 1 tabs Oral [...] Title: Office Visit Note-CDM Author: Belle Whyte MACHINE WELT BUTTER Date: 06/13/15 Assessment/Plan 1.GERD without esophagitis Cont same Anemia of chronic disease Cont same Ordered: CBC w/ Differential CBC w/ Differential Aortic valve disorder Cont same. Keep appointment with cardiology. Benign essential hypertension Cont same. CDM report card completed and reviewed with patient. Last labs reviewed with patient. Recommendations discussed. Copy provided. When follow-up in 6 mo nths with hemoglobin A1c, CMP and CBC at that time. Ordered: Office Visit Level 4 Est 91287 Hypokalemia Inc K to 40 mEq per day. Catherine in one mos Ordered: Comprehensive Metabolic Panel Office Visit Level 4 Est 08279 Mixed hyperlipidemia Continue Crestor 5 mg daily. Working well. Tolerating well. Ordered: Comprehensive Metabolic Panel Office Visit Level 4 Est 68298 Osteoarthritis Encourage physical activity. Continue [place] as prescribed. Ordered: Office Visit Level 4 Est 00932 Thickened nail Discussed trial of Lamisil 250 mg twice a day for 12 weeks. Side effectsdiscussed. She would like to try it is a nuisance for her. Orders: amLODIPine, See Instructions, TAKE 1 TABLET EVERY DAY, # 90 tabs, 3 Refill(s), Pharmacy: [facility], TAKE 1 TABLET EVERY DAY atenolol-chlorthalidone, 1 tabs, Oral, Daily, # 90 tabs, 3 Refill(s), Pharmacy: [facility] HYDROcodone-acetaminophen, 1-2, Oral, q6hr, as needed for pain, not to exceed 4000 mg acetaminophen per day MONTH SUPPLY, # 240 tabs, 0 Refill(s) omeprazole, 20 mg 1 tabs, Oral, Daily, # 90 tabs, 3 Refill(s), Pharmacy: [facility], 1 tabs Oral Daily potassium chloride, 20 mEq 1 tabs, Oral, BID, # 360 tabs, 3 Refill(s), Pharmacy: [facility], 1 tabs Oral Daily rosuvastatin, 5 mg 1 tabs, Oral, Daily, # 90 tabs, 3 Refill(s), Pharmacy: [facility], 1 tabs Oral Daily,x90 days terbinafine, 250 mg 1 tabs, Oral, Daily, X 12 weeks, # 84 tabs, 0 Refill(s), Pharmacy: [facility], 1 tabs Oral Daily,x12 weeks Hemoglobin A1c
--- OUTSIDE RECORDS SUMMARY | 2017-04-17 13:18 | External Medical Summary | Referral Summary ---
:1935 Author Organization [facility], [facility] Address [address] [place] [address] [place] [address] Care Team Providers Name Role Phone Ole Alatorre Primary Care Physician Encounter [facility] Date(s): 03/11/16 - 03/11/16 [facility] [place] [place] [address] [place] Discharge Diagnosis: Benign essential hypertension (disorder) Discharge Diagnosis: Mixed hyperlipidemia Discharge Diagnosis: Anemia of chronic disease Discharge Diagnosis: Prediabetes Discharge Diagnosis: GERD Discharge Diagnosis: Hypokalemia Discharge Diagnosis: Osteoarthritis Discharge Disposition: 01-Home or Self Care Attending Physician: Belle Whyte APRN Admitting Physician: Belle Whyte APRN Vital Signs Most recent to oldest [Reference Range]: 1 Temperature Tympanic [36.6-38.1 degC] 35.5 degC *LOW* (03/11/16 9:44 AM) Peripheral Pulse Rate [60-100 bpm] 68 bpm (03/11/16 9:44 AM) Blood Pressure [90-140/60-90 mmHg] 134/74 mmHg (03/11/16 9:44 AM) Problem List Condition Effective Dates Status Health Status Informant Anemia of chronic disease(Confirmed) Active Aortic valve disorder Active (disorder)(Confirmed) Benign essential hypertension Active (disorder)(Confirmed) Cardiomegaly (disorder)(Confirmed) Active section(Confirmed)1 Resolved Constipation (disorder)(Confirmed) Active GERD(Confirmed) Active Hyperlipidemia(Confirmed) Resolved Hypertension(Confirmed) Resolved Hypokalemia(Confirmed) Active Mixed hyperlipidemia Active (disorder)(Confirmed) Obesity(Confirmed) < 11/11/14 Resolved Osteoarthritis(Confirmed) Active Prediabetes(Confirmed) Active Pulmonary HTN Severe(Confirmed) Active 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) Total hip replacement - 2006 Resolved Right(Confirmed) 1x4 Allergies, Adverse Reactions, Alerts Substance Reaction Severity Status lovastatin Active simvastatin Active Medications amLODIPine 2.5 mg oral tablet See Instructions, TAKE 1 TABLET EVERY DAY, # 90 tabs, 3 Refill(s), Pharmacy: [facility], TAKE 1 TABLET EVERY DAY Start Date: 06/13/15 Status: OrderedAspir 81 81 mg, Oral, Daily, 1 tab, 0 Refill(s) Start Date: 11/11/14 Status: Orderedatenolol-chlorthalidone 50 mg-25 mg oral tablet See Instructions, 1/2 tab Oral Daily, # 30 Each, 3 Refill(s), Pharmacy: [facility] Start Date: 06/13/15 Status: OrderedCrestor 5 mg oral tablet 5 mg 1 tabs, Oral, Daily, # 90 tabs, 3 Refill(s), Pharmacy: [facility], 1 tabs Oral Daily,x90 days Start Date: 06/13/15 Stop Date: 06/07/16 Status: OrderedNorco 10 mg-325 mg oral tablet 1-2, Oral, q6hr, as needed for pain, not to exceed 4000 mg acetaminophen per day May fill 11-5, # 240 tabs, 0 Refill(s) Start Date: 03/11/16 Status: Orderedpotassium chloride 20 mEq oral tablet, extended release 20 mEq 1 tabs, Oral, BID, # 180 tabs, 3 Refill(s), Pharmacy: [facility], 1 tabs Oral BID Start Date: 03/11/16 Status: OrderedPrevacid 30 mg oral delayed release capsule 30 mg 1 caps, Oral, Daily, # 90 caps, 3 Refill(s), Pharmacy: [facility], 1 caps Oral Daily Start Date: 03/11/16 Status: OrderedStool Softner Stool Softner, 4 tabs, Oral, Daily, PRN for constipation, 0 Refill(s) Start Date: 12/16/14 Status: Ordered Results No data available for this section Immunizations Vaccine Date Refusal Reason tetanus/diphth/pertuss (Tdap) adult/adol 03/24/12 influenza virus vaccine, inactivated 03/11/16 influenza virus vaccine, inactivated 04/24/15 influenza virus [...] Title: Office Visit Note-CDM Author: Belle Whyte HUMAN RESOURCE STATISTICIAN Date: 03/11/16 Assessment/Plan 1.Benign essential hypertension (disorder) Well controlled with current regimen. No changes. Plan follow-up in 3 months with fasting lab a day or 2 before hand. 2.GERD As Prilosec was causing gassiness trial of Prevacid to see if that is effective. Samples of Nexium were provided. She can let me know which one she likes the past. 3.Hypokalemia Supplemented with potassium. Tolerating well. 4.Mixed hyperlipidemia Currently well controlled with Crestor. Tolerating without any adverse effects. 5.Osteoarthritis Continues to be problematic adequately controlled with hydrocodone. Continue same. Refill provided for April 6.Anemia of chronic disease Overall stable. Continue to monitor periodically. 7.Prediabetes Previously well controlled. Suspect continued control withrecent weight loss. Need for influenza vaccination Counseled on flu vaccine. Given by nursing. Plan follow-up in 3 months or sooner if medical needs arise.CDM report card completed and reviewed with patient. Last labs reviewed with patient. Recommendations discussed. Copy provided.
--- OUTSIDE RECORDS SUMMARY | 2017-04-17 13:18 | External Medical Summary | Referral Summary ---
:1935 Author Organization [facility] Address [address] [place] [address] [place] [address] Care Team Providers Name Role Phone Ole Alatorre Primary Care Physician Encounter [facility] Date(s): 11/11/14 - 11/11/14 [facility] [address] [place] [address] [place] Discharge Diagnosis: [...] Daily, # 90 tabs, 3 Refill(s), Pharmacy: [facility] Start Date: 01/23/15 Status: OrderedCrestor 5 mg oral tablet 1 tabs, Oral, Daily, DUE FOR LAB/APPT IN MAY, # 90 tabs, 3 Refill(s), Pharmacy: [facility],1 tabs Oral Daily,x90 days,Instr:DUE FOR LAB/APPT [...] Daily, # 90 tabs, 3 Refill(s), Pharmacy: [facility], 1 tabs Oral Daily Start Date: 01/23/15 Status: Orderedpotassium chloride 20 mEq oral tablet, extended release 20 mEq 1 tabs, Oral, Daily, # 90 tabs, 3 Refill(s), Pharmacy: [facility], 1 tabs Oral Daily [...] Title: Office Visit Note-CMD Author: Belle Whyte LOGISTICS DIRECTOR Date: 11/11/14 Assessment/Plan Anemia of chronic disease [...]
--- OUTSIDE RECORDS SUMMARY | 2017-04-17 13:18 | External Medical Summary | Referral Summary ---
:1935 Author Organization [facility] Address [address] [place] [address] [place] [address] Care Team Providers Name Role Phone Ole Alatorre Primary Care Physician Encounter [facility] Date(s): 12/12/15 - 12/12/15 [facility] [address] [place] [address] [place] Discharge Diagnosis: Mixed hyperlipidemia Discharge Diagnosis: Anemia of chronic disease Discharge Diagnosis: Weight loss Discharge Diagnosis: Osteoarthritis Discharge Diagnosis: GERD Discharge Diagnosis: Hypokalemia Discharge Diagnosis: Benign essential hypertension (disorder) Discharge Disposition: 01-Home or Self Care Attending Physician: Belle Whyte APRN Admitting Physician: Belle Whyte APRN Vital Signs Most recent to oldest [Reference Range]: 1 Temperature Tympanic [36.6-38.1 degC] 36.6 degC (12/12/15 9:32 AM) Peripheral Pulse Rate [60-100 bpm] 56 bpm *LOW* (12/12/15 9:32 AM) Blood Pressure [90-140/60-90 mmHg] 126/74 mmHg (12/12/15 9:32 AM) Problem List Condition Effective Dates Status Health Status Informant Anemia of chronic disease(Confirmed) Active Aortic valve disorder Active (disorder)(Confirmed) Benign essential hypertension Active (disorder)(Confirmed) Cardiomegaly (disorder)(Confirmed) Active section(Confirmed)1 Resolved Constipation (disorder)(Confirmed) Active GERD(Confirmed) Active Hyperlipidemia(Confirmed) Resolved Hypertension(Confirmed) Resolved Hypokalemia(Confirmed) Active Mixed hyperlipidemia Active (disorder)(Confirmed) Obesity(Confirmed) < 11/11/14 Resolved Osteoarthritis(Confirmed) Active Pulmonary HTN Severe(Confirmed) Active 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) Total hip replacement - 2006 Resolved Right(Confirmed) 1x4 Allergies, Adverse Reactions, Alerts Substance Reaction Severity Status lovastatin Active simvastatin Active Medications amLODIPine 2.5 mg oral tablet See Instructions, TAKE 1 TABLET EVERY DAY, # 90 tabs, 3 Refill(s), Pharmacy: [facility], TAKE 1 TABLET EVERY DAY Start Date: 06/13/15 Status: OrderedAspir 81 81 mg, Oral, Daily, 1 tab, 0 Refill(s) Start Date: 11/11/14 Status: Orderedatenolol-chlorthalidone 50 mg-25 mg oral tablet See Instructions, 1/2 tab Oral Daily, # 30 Each, 3 Refill(s), Pharmacy: [facility] Start Date: 06/13/15 Status: OrderedCrestor 5 mg oral tablet 5 mg 1 tabs, Oral, Daily, # 90 tabs, 3 Refill(s), Pharmacy: [facility], 1 tabs Oral Daily,x90 days Start Date: 06/13/15 Stop Date: 06/07/16 Status: OrderedNorco 10 mg-325 mg oral tablet 1-2, Oral, q6hr, as needed for pain, not to exceed 4000 mg acetaminophen per day 30 DAY SUPPLY NOVEMBER 14, # 240 tabs, 0 Refill(s) Start Date: 12/12/15 Status: Orderedomeprazole 20 mg oral delayed release tablet 20 mg 1 tabs, Oral, Daily, # 90 tabs, 3 Refill(s), Pharmacy: [facility], 1 tabs Oral Daily Start Date: 06/13/15 Status: Orderedpotassium chloride 20 mEq oral tablet, extended release 20 mEq 1 tabs, Oral, BID, # 30 tabs, 0 Refill(s), Pharmacy: [facility], 1 tabs Oral BID Start Date: 10/17/15 Status: OrderedStool Softner Stool Softner, 4 tabs, [...] and Plan Extracted from: Title: Office Visit Note-med check Author: Belle Whyte MARKETING TEACHER Date: 12/11 Assessment/Plan 1.Benign essential hypertension (disorder) Due to her weight loss in leg crampsI would like to decrease her atenolol/chlorthalidoneto half a tablet daily. We'll need to monitor closely for a ny increasedfluidissues. Plan recheck in 3 months. 2.Mixed hyperlipidemia Continue statin. adequately controlled. 3.Osteoarthritis Continue hydrocodone for pain. Encourage physical activity. 4.Anemia of chronic disease Monitor periodically. 5.GERD Well controlled with current regimen. No change. 6.Hypokalemia Replaced. Continue current dose of potassium. Plan repeat BMP in 3 months. Discussed repeatingcolonoscopy as she is past due. She is not interested at this time. Not interested inoccult stoolscreening either. I did discuss with her and may be beneficial consideri ng her weight loss and chronic anemia. She refuses. Patient is not interested in any further Pap smears,mammograms or DEXA scans. Zostavax too expensive. Orders: atenolol-chlorthalidone, See Instructions, 1/2 tab Oral Daily, # 30 Each, 3 Refill(s), Pharmacy: [facility] HYDROcodone-acetaminophen, 1-2, Oral, q6hr, as needed for pain, not to exceed 4000 mg acetaminophen per day 30 DAY SUPPLY NOVEMBER 14, # 240 tabs, 0 Refill (s)
--- OUTSIDE RECORDS SUMMARY | 2017-04-17 13:18 | External Medical Summary | Referral Summary ---
:1935 Author Organization [facility] [address] [place] [address] Care Team Providers Name Role Phone Ole Alatorre Primary Care Physician Encounter [facility] Date(s): 11/11/14 - 11/11/14 [facility] [place] [address] [place] Discharge Diagnosis: [...] Daily, # 90 tabs, 3 Refill(s), Pharmacy: [facility] Start Date: 01/23/15 Status: OrderedCrestor 5 mg oral tablet 1 tabs, Oral, Daily, DUE FOR LAB/APPT IN MAY, # 90 tabs, 3 Refill(s), Pharmacy: [facility],1 tabs Oral Daily,x90 days,Instr:DUE FOR LAB/APPT [...] Daily, # 90 tabs, 3 Refill(s), Pharmacy: [facility], 1 tabs Oral Daily Start Date: 01/23/15 Status: Orderedpotassium chloride 20 mEq oral tablet, extended release 20 mEq 1 tabs, Oral, Daily, # 90 tabs, 3 Refill(s), Pharmacy: [facility], 1 tabs Oral Daily [...] Title: Office Visit Note-CMD Author: Belle Whyte ROLL TESTER Date: 11/11/14 Assessment/Plan Anemia of chronic disease [...]
--- OUTSIDE RECORDS SUMMARY | 2017-04-17 13:18 | External Medical Summary | Referral Summary ---
:1935 Author Organization [facility] Address [address] [place] [address] Care Team Providers Name Role Phone Ole Alatorre Primary Care Physician Encounter [facility] [id number] Date(s): 12/16/14 - 12/16/14 [facility] [address] [place] [address] [place] Discharge Diagnosis: Mitral valve [...] Daily, # 90 tabs, 3 Refill(s), Pharmacy: [email or web address], 1 tabs Oral Daily Start Date: 05/13/14 Status: OrderedAspir 81 81 mg, Oral, Daily, 1 tab, 0 Refill(s) Start Date: 11/11/14 Status: Orderedatenolol-chlorthalidone 50 mg-25 mg oral tablet 1 tabs, Oral, Daily, # 90 tabs, 3 Refill(s), Pharmacy: [facility] Start Date: 01/23/15 Status: OrderedCrestor 5 mg oral tablet 1 tabs, Oral, Daily, DUE FOR LAB/APPT IN MAY, # 90 tabs, 3 Refill(s), Pharmacy: [email or web address],1 tabs Oral Daily,x90 days,Instr:DUE FOR LAB/APPT [...] Daily, # 90 tabs, 3 Refill(s), Pharmacy: [facility], 1 tabs Oral Daily Start Date: 01/23/15 Status: Orderedpotassium chloride 20 mEq oral tablet, extended release 20 mEq 1 tabs, Oral, Daily, # 90 tabs, 3 Refill(s), Pharmacy: [facility], 1 tabs Oral Daily [...] MORE INFORMATION National Heart Lung and Blood [place]: www.nhlbi.nih.gov/health/hearttruth [place] [employer]: www.heart.org/HEARTORG Document Released: 08/08/2004 Document Revised: 08/10/2012 Document Reviewed: 08/03/2008 ExitCare Patient Information 2014 [employer] [facility]. No follow up information was provided. Extracted [...]
--- OUTSIDE RECORDS SUMMARY | 2017-04-17 13:18 | External Medical Summary | Referral Summary ---
:1935 Author Organization [facility] Address [address] [place] [address] Care Team Providers Name Role Phone Ole Alatorre Primary Care Physician Encounter [facility] [id number] Date(s): 12/16/14 - 12/16/14 [facility] [address] [place] [address] [place] Discharge Diagnosis: Mitral valve [...] Daily, # 90 tabs, 3 Refill(s), Pharmacy: [facility], 1 tabs Oral Daily Start Date: 05/13/14 Status: OrderedAspir 81 81 mg, Oral, Daily, 1 tab, 0 Refill(s) Start Date: 11/11/14 Status: Orderedatenolol-chlorthalidone 50 mg-25 mg oral tablet 1 tabs, Oral, Daily, # 90 tabs, 3 Refill(s), Pharmacy: [facility] Start Date: 01/23/15 Status: OrderedCrestor 5 mg oral tablet 1 tabs, Oral, Daily, DUE FOR LAB/APPT IN MAY, # 90 tabs, 3 Refill(s), Pharmacy: [facility],1 tabs Oral Daily,x90 days,Instr:DUE FOR LAB/APPT [...] Daily, # 90 tabs, 3 Refill(s), Pharmacy: [facility], 1 tabs Oral Daily Start Date: 01/23/15 Status: Orderedpotassium chloride 20 mEq oral tablet, extended release 20 mEq 1 tabs, Oral, Daily, # 90 tabs, 3 Refill(s), Pharmacy: [facility], 1 tabs Oral Daily [...] MORE INFORMATION National Heart Lung and Blood [place]: www.nhlbi.nih.gov/health/hearttruth [place] [employer]: www.heart.org/HEARTORG Document Released: 08/08/2004 Document Revised: 08/10/2012 Document Reviewed: 08/03/2008 ExitCare Patient Information 2014 [employer] [facility]. No follow up information was [...]
--- OUTSIDE RECORDS SUMMARY | 2017-04-17 13:19 | External Medical Summary | Referral Summary ---
:1935 Author Organization [facility] Address [address] [place] [address] Care Team Providers Name Role Phone Ole Alatorre Primary Care Physician Encounter [facility] Date(s): 04/16/16 - 04/16/16 [facility] [address] [place] [address]- [place] Discharge Diagnosis: Dyslipidemia Discharge Diagnosis: Benign essential hypertension (disorder) Discharge Diagnosis: Aortic valve disorder (disorder) Discharge Diagnosis: Tricuspid valve regurgitation Discharge Disposition: 01-Home or Self Care Attending Physician: King Mcdaniel MD Admitting Physician: King Mcdaniel MD Referring Physician: Ole Alatorre MD Vital Signs Most recent to oldest [Reference Range]: 1 Peripheral Pulse Rate [60-100 bpm] 58 bpm *LOW* (04/16/16 1:04 PM) Blood Pressure [90-140/60-90 mmHg] 140/60 mmHg (04/16/16 1:04 PM) Problem List Condition Effective Dates Status Health Status Informant Anemia of chronic disease(Confirmed) Active Aortic valve disorder Active (disorder)(Confirmed) Benign essential hypertension Active (disorder)(Confirmed) Cardiomegaly (disorder)(Confirmed) Active section(Confirmed)1 Resolved Constipation (disorder)(Confirmed) Active Dyslipidemia(Confirmed) Active GERD(Confirmed) Active Hyperlipidemia(Confirmed) Resolved Hypertension(Confirmed) Resolved Hypokalemia(Confirmed) Active Mixed hyperlipidemia Active (disorder)(Confirmed) Obesity(Confirmed) < 11/11/14 Resolved Osteoarthritis(Confirmed) Active Prediabetes(Confirmed) Active Pulmonary HTN Severe(Confirmed) Active Tricuspid valve Active regurgitation(Confirmed) 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, 1 tabs Oral Daily Start Date: 04/16/16 Status: OrderedAspir 81 81 mg, Oral, Daily, 1 tab, 0 Refill(s) Start Date: 11/11/14 Status: Orderedatenolol-chlorthalidone 50 mg-25 mg oral tablet See Instructions, 1/2 tab Oral Daily, # 30 Each, 3 Refill(s), Pharmacy: [facility] Start Date: 06/13/15 Status: OrderedCrestor 5 mg oral tablet 5 mg 1 tabs, Oral, Daily, # 90 tabs, 3 Refill(s), Pharmacy: [facility], 1 tabs Oral [...] BID, # 180 tabs, 3 Refill(s), Pharmacy: [facility], 1 tabs Oral BID Start Date: 03/11/16 Status: OrderedPrevacid 30 mg oral delayed release capsule 30 mg 1 caps, Oral, Daily, # 90 caps, 3 Refill(s), [facility], 1 caps Oral Daily Start Date: [...] Patient Education Author: King Mcdaniel MD Date: 04/16 Cardiovascular Dyslipidemia Dyslipidemia is an imbalance of the lipids in your blood. Lipids are waxy, fat- like proteins that your body needs in small amounts. Dyslipidemia often involves the lipids cholesterol or triglycerides. Common forms of dyslipidemia are: High levels of bad cholesterol (LDL cholesterol). LDL cholesterol is the type of cholesterol that causes heart disease. Low levels of good cholesterol (HDL cholesterol). HDL cholesterol is the type of cholesterol that helps protect against heart disease. High levels of triglycerides. Triglycerides are a fatty substance in the blood linked to a buildup of plaque on your arteries. RISK FACTORS Increased age. Having a family history of high cholesterol. Certain medicines, including control pills, diuretics, beta- blockers, and some medicines for depression. Smoking. Eating a high-fat diet. Being overweight. Medical conditions such as diabetes, polycystic ovary syndrome, , kidney disease, and hypothyroidism. Lack of regular exercise. SIGNS AND SYMPTOMS There are no signs or symptoms with dyslipidemia. DIAGNOSIS A simple blood test called a fasting blood test can be done to determine your level of: Total cholesterol. This is the combined number of LDL cholesterol and HDL cholesterol. A healthy number is lower than 200. LDL cholesterol. The goal number for LDL cholesterol is different for each person depending on risk factors. Ask your health care provider what your LDL cholesterol number should be. HDL cholesterol. A healthy level of HDL cholesterol is 60 or higher. A number lower than 40 for men or 50 for women is a danger sign. Triglycerides. A healthy triglyceride number is less than 150. TREATMENT Dyslipidemia is a treatable condition. Your health care provider will advise you on what type of treatment is best based on your age, your test results, and current guidelines. Treatment may include: Dietary changes. A dietitian may help you create a diet that is based on your risk factors, conditions, and lifestyle. Regular exercise. This can help lower your LDL cholesterol, raise your HDL cholesterol, and help with weight management. Check with your health care provider before beginning an exercise program. Most people should participate in 30 minutes of brisk exercise 5 days a week. Quitting smoking. Medicines to lower LDL cholesterol and triglycerides. If you have high levels of triglycerides, your health care provider may: Have you stop drinking alcohol. Have you restrict your fat intake. Have you eliminate refined sugars from your diet. Treat you for other conditions, such as underactive thyroid gland ( hypothyroidism) and high blood sugar (hyperglycemia). Your health care provider will monitor your lipid levels with regular blood tests. HOME CARE INSTRUCTIONS Eat a healthy diet. Follow any diet instructions if they were given to you by your health care provider. Maintain a healthy weight. Exercise regularly based on the recommendations of your health care provider. Do not use any tobacco products, including cigarettes, chewing tobacco, or electronic cigarettes. Take medicines only as directed by your health care provider. Keep all follow-up visits as directed by your health care provider. SEEK MEDICAL CARE IF: You are having possible side effects from your medicines. This information is not intended to replace advice given to you by your health care provider. Make sure you discuss any questions you have with your health care provider. Document Released: 05/24/2014 Document Revised: 06/09/2015 Document Reviewed: 05/24/2014 [employer] Patient Education 2016 [employer] No follow up information was provided. Extracted from: Title: Office Visit Note Author: King Mcdaniel MD Date: 04/16/16 Assessment/Plan 1.Aortic valve disorder (disorder) The patient has mild aortic valve stenosis that appears to be asymptomatic. She is euvolemic on physical examinationtherefore we will consider checking a re peat echocardiogramduring her next office appointment. Ordered: Office Visit Level 4 Est 57778 2.Benign essential hypertension (disorder) The patient blood pressure is well controlled under the current regimen therefore no adjustments will be recommended. Ordered: Office Visit Level 4 Est 09368 3.Dyslipidemia The patient was tolerating herrosuvastatin well without any side effects of myalgias. The patient is anticipating to have a repeat lipid profile by her primary care physician. We look forward to seeing the results. Ordered: Office Visit Level 4 Est 70802 4.Tricuspid valve regurgitation The patient has moderate tricuspid valve regurgitation. She is euvolemic on physical examination there for observation will be seen at this stage and we will repeat an echocardiogram in 6 months time. Ordered: Office Visit Level 4 Est 56897 The patient will follow-upwith us in 6 months from today or sooner if she develops any symptoms. Thank you for allowing us to be involved in the care of Ms. Bermudez.
--- OUTSIDE RECORDS SUMMARY | 2017-04-17 13:19 | External Medical Summary | Referral Summary ---
:1935 Author Organization [facility] Address [address] [place] [address] Care Team Providers Name Role Phone Ole Alatorre Primary Care Physician Encounter [facility] [id number] Date(s): 12/16/14 - 12/16/14 [facility] [address] [place] [address]- [place] Discharge Diagnosis: Mitral valve [...] Daily, # 90 tabs, 3 Refill(s), Pharmacy: [email or web address], 1 tabs Oral Daily Start Date: 05/13/14 Status: OrderedAspir 81 81 mg, Oral, Daily, 1 tab, 0 Refill(s) Start Date: 11/11/14 Status: Orderedatenolol-chlorthalidone 50 mg-25 mg oral tablet 1 tabs, Oral, Daily, # 90 tabs, 3 Refill(s), Pharmacy: [facility] Start Date: 01/23/15 Status: OrderedCrestor 5 mg oral tablet 1 tabs, Oral, Daily, DUE FOR LAB/APPT IN MAY, # 90 tabs, 3 Refill(s), Pharmacy: [email or web address],1 tabs Oral Daily,x90 days,Instr:DUE FOR LAB/APPT [...] Daily, # 90 tabs, 3 Refill(s), Pharmacy: [facility], 1 tabs Oral Daily Start Date: 01/23/15 Status: Orderedpotassium chloride 20 mEq oral tablet, extended release 20 mEq 1 tabs, Oral, Daily, # 90 tabs, 3 Refill(s), Pharmacy: [facility], 1 tabs Oral Daily [...] MORE INFORMATION National Heart Lung and Blood [place]: www.nhlbi.nih.gov/health/hearttruth [place] [employer]: www.heart.org/HEARTORG Document Released: 08/08/2004 Document Revised: 08/10/2012 Document Reviewed: 08/03/2008 ExitCare Patient Information 2014 [employer] [facility]. No follow up information was provided. Extracted [...]
--- OUTSIDE RECORDS SUMMARY | 2017-04-17 13:19 | External Medical Summary | Referral Summary ---
:1935 Author Organization [facility] Address [address] [place] [address] [place] [address] Care Team Providers Name Role Phone Ole Alatorre Primary Care Physician Encounter [facility] Date(s): 11/11/14 - 11/11/14 [facility] [place] [address] [place] Discharge Diagnosis: [...] Daily, # 90 tabs, 3 Refill(s), Pharmacy: [facility] Start Date: 01/23/15 Status: OrderedCrestor 5 mg oral tablet 1 tabs, Oral, Daily, DUE FOR LAB/APPT IN MAY, # 90 tabs, 3 Refill(s), Pharmacy: [facility],1 tabs Oral Daily,x90 days,Instr:DUE FOR LAB/APPT [...] Daily, # 90 tabs, 3 Refill(s), Pharmacy: [facility], 1 tabs Oral Daily Start Date: 01/23/15 Status: Orderedpotassium chloride 20 mEq oral tablet, extended release 20 mEq 1 tabs, Oral, Daily, # 90 tabs, 3 Refill(s), Pharmacy: [facility], 1 tabs Oral Daily [...] Title: Office Visit Note-CMD Author: Belle Whyte ASPHALT ENGINEER Date: 11/11/14 Assessment/Plan Anemia of chronic disease [...]
--- OUTSIDE RECORDS SUMMARY | 2017-04-17 13:19 | External Medical Summary | Referral Summary ---
:1935 Author Organization [facility] Address [address] [place] [address] Care Team Providers Name Role Phone Ole Alatorre Primary Care Physician Encounter [facility] [id number] Date(s): 12/16/14 - 12/16/14 [facility] [address] [place] [address] [place] Discharge Diagnosis: Mitral valve [...] DAY, # 90 tabs, 3 Refill(s), Pharmacy: [facility], TAKE 1 TABLET EVERY DAY Start Date: 06/13/15 Status: OrderedAspir 81 81 mg, Oral, Daily, 1 tab, 0 Refill(s) Start Date: 11/11/14 Status: Orderedatenolol-chlorthalidone 50 mg-25 mg oral tablet 1 tabs, Oral, Daily, # 90 tabs, 3 Refill(s), Pharmacy: [facility] Start Date: 06/13/15 Status: OrderedCrestor 5 mg oral tablet 5 mg 1 tabs, Oral, Daily, # 90 tabs, 3 Refill(s), Pharmacy: [facility], 1 tabs Oral Daily,x90 days Start Date: 06/13/15 Stop Date: 06/07/16 Status: OrderedLamISIL 250 mg oral tablet 250 mg 1 tabs, Oral, Daily, X 12 weeks, # 84 tabs, 0 Refill(s), Pharmacy: [facility], 1 tabs Oral Daily,x12 [...] Daily, # 90 tabs, 3 Refill(s), Pharmacy: [facility], 1 tabs Oral Daily Start Date: 06/13/15 Status: Orderedpotassium chloride 20 mEq oral tablet, extended release 20 mEq 1 tabs, Oral, BID, # 360 tabs, 3 Refill(s), Pharmacy: [facility], 1 tabs Oral Daily [...] MORE INFORMATION National Heart Lung and Blood [place]: www.nhlbi.nih.gov/health/hearttruth [place] [employer]: www.heart.org/HEARTORG Document Released: 08/08/2004 Document Revised: 08/10/2012 Document Reviewed: 08/03/2008 ExitCare Patient Information 2013 [employer]. No follow up information was provided. Extracted [...] previously had been severe on echocardiogram from 2012. She has been free of any symptoms. [...]
--- OUTSIDE RECORDS SUMMARY | 2017-04-17 13:19 | External Medical Summary | Referral Summary ---
:1935 Author Organization [facility] Address [address] [place] [address] Care Team Providers Name Role Phone Ole Alatorre Primary Care Physician Encounter [facility] [id number] Date(s): 12/16/14 - 12/16/14 [facility] [address] [place] [address]- [place] Discharge Diagnosis: Mitral valve [...] Daily, # 90 tabs, 3 Refill(s), Pharmacy: [email or web address], 1 tabs Oral Daily Start Date: 05/13/14 Status: OrderedAspir 81 81 mg, Oral, Daily, 1 tab, 0 Refill(s) Start Date: 11/11/14 Status: Orderedatenolol-chlorthalidone 50 mg-25 mg oral tablet 1 tabs, Oral, Daily, # 90 tabs, 3 Refill(s), Pharmacy: [facility] Start Date: 01/23/15 Status: OrderedCrestor 5 mg oral tablet 1 tabs, Oral, Daily, DUE FOR LAB/APPT IN MAY, # 90 tabs, 3 Refill(s), Pharmacy: [email or web address],1 tabs Oral Daily,x90 days,Instr:DUE FOR LAB/APPT [...] Daily, # 90 tabs, 3 Refill(s), Pharmacy: [facility], 1 tabs Oral Daily Start Date: 01/23/15 Status: Orderedpotassium chloride 20 mEq oral tablet, extended release 20 mEq 1 tabs, Oral, Daily, # 90 tabs, 3 Refill(s), Pharmacy: [facility], 1 tabs Oral Daily [...] MORE INFORMATION National Heart Lung and Blood [place]: www.nhlbi.nih.gov/health/hearttruth [place] [employer]: www.heart.org/HEARTORG Document Released: 08/08/2004 Document Revised: 08/10/2012 Document Reviewed: 08/03/2008 ExitCare Patient Information 2014 [employer] [facility]. No follow up information was provided. Extracted [...]
--- OUTSIDE RECORDS SUMMARY | 2017-04-17 13:19 | External Medical Summary | Referral Summary ---
:1935 Author Organization [facility] Address [address] [place] [address] Care Team Providers Name Role Phone Ole Alatorre Primary Care Physician Encounter [facility] [id number] Date(s): 12/16/14 - 12/16/14 [facility] [address] [place] [address]- [place] Discharge Diagnosis: Mitral valve [...] Daily, # 90 tabs, 3 Refill(s), Pharmacy: [facility], 1 tabs Oral Daily Start Date: 05/13/14 Status: OrderedAspir 81 81 mg, Oral, Daily, 1 tab, 0 Refill(s) Start Date: 11/11/14 Status: Orderedatenolol-chlorthalidone 50 mg-25 mg oral tablet 1 tabs, Oral, Daily, # 90 tabs, 3 Refill(s), Pharmacy: [facility] Start Date: 01/23/15 Status: OrderedCrestor 5 mg oral tablet 1 tabs, Oral, Daily, DUE FOR LAB/APPT IN MAY, # 90 tabs, 3 Refill(s), Pharmacy: [facility],1 tabs Oral Daily,x90 days,Instr:DUE FOR LAB/APPT [...] Daily, # 90 tabs, 3 Refill(s), Pharmacy: [facility], 1 tabs Oral Daily Start Date: 01/23/15 Status: Orderedpotassium chloride 20 mEq oral tablet, extended release 20 mEq 1 tabs, Oral, Daily, # 90 tabs, 3 Refill(s), Pharmacy: [facility], 1 tabs Oral Daily [...] MORE INFORMATION National Heart Lung and Blood [place]: www.nhlbi.nih.gov/health/hearttruth [place] [employer]: www.heart.org/HEARTORG Document Released: 08/08/2004 Document Revised: 08/10/2012 Document Reviewed: 08/03/2008 ExitCare Patient Information 2014 [employer] [facility]. No follow up information was provided. [...]
--- OUTSIDE RECORDS SUMMARY | 2017-04-17 13:19 | External Medical Summary | Referral Summary ---
:1935 Author Organization [facility] Address [address] [place] [address] [place] [address] Care Team Providers Name Role Phone Ole Alatorre Primary Care Physician Encounter [facility] Date(s): 11/11/14 - 11/11/14 [facility] [place] [address] [place] Discharge Diagnosis: [...] Daily, # 90 tabs, 3 Refill(s), Pharmacy: [facility] Start Date: 01/23/15 Status: OrderedCrestor 5 mg oral tablet 1 tabs, Oral, Daily, DUE FOR LAB/APPT IN MAY, # 90 tabs, 3 Refill(s), Pharmacy: [facility],1 tabs Oral Daily,x90 days,Instr:DUE FOR LAB/APPT [...] Daily, # 90 tabs, 3 Refill(s), Pharmacy: [facility], 1 tabs Oral Daily Start Date: 01/23/15 Status: Orderedpotassium chloride 20 mEq oral tablet, extended release 20 mEq 1 tabs, Oral, Daily, # 90 tabs, 3 Refill(s), Pharmacy: [facility], 1 tabs Oral Daily [...] Title: Office Visit Note-CMD Author: Belle Whyte CLINICAL RESEARCH DIRECTOR Date: 11/11/14 Assessment/Plan Anemia of chronic [...]
--- OUTSIDE RECORDS SUMMARY | 2017-04-17 13:19 | External Medical Summary | Referral Summary ---
:1935 Author Organization [facility] Address [address] [place] [address] Care Team Providers Name Role Phone Ole Alatorre Primary Care Physician Encounter [facility] Date(s): 11/07/15 - 11/07/15 [facility] [address] [place] [address]- [place] Discharge Disposition: 01-Home or Self Care Attending Physician: King Mcdaniel MD Admitting Physician: King Mcdaniel MD Vital Signs No data available for [...] DAY, # 90 tabs, 3 Refill(s), Pharmacy: [facility], TAKE 1 TABLET EVERY DAY Start Date: 06/13/15 Status: OrderedAspir 81 81 mg, Oral, Daily, 1 tab, 0 Refill(s) Start Date: 11/11/14 Status: Orderedatenolol-chlorthalidone 50 mg-25 mg oral tablet 1 tabs, Oral, Daily, # 90 tabs, 3 Refill(s), Pharmacy: [facility] Start Date: 06/13/15 Status: OrderedCrestor 5 mg oral tablet 5 mg 1 tabs, Oral, Daily, # 90 tabs, 3 Refill(s), Pharmacy: [facility], 1 tabs Oral Daily,x90 days Start Date: 06/13/15 Stop Date: 06/07/16 Status: OrderedNorco 10 mg-325 mg oral tablet 1-2, Oral, q6hr, as needed for pain, not to exceed 4000 mg acetaminophen per day MONTH SUPPLY, # 240 tabs, 0 Refill(s) Start Date: 10/17/15 Status: Orderedomeprazole 20 mg oral delayed release tablet 20 mg 1 tabs, Oral, Daily, # 90 tabs, 3 Refill(s), Pharmacy: [facility], 1 tabs Oral Daily Start Date: 06/13/15 Status: Orderedpotassium chloride 20 mEq oral tablet, extended release 20 mEq 1 tabs, Oral, BID, # 30 tabs, 0 Refill(s), Pharmacy: [facility], 1 tabs Oral BID Start Date: [...]
--- OUTSIDE RECORDS SUMMARY | 2017-04-17 13:19 | External Medical Summary | Continuity of Care Document ---
:1935 Author Organization [facility] Allergies Medications Problems Procedures Results Encounters ACCT No. Visit Discharge Status Pt. Type Provider Facility Loc./Unit Complaint Date/Time [id number] 06/08/2013 06/08/2013 [facility] 09:28:00 23:59:59 [id number] 04/27/2013 04/27/2013 [facility] Outpatient 08:32:00 23:59:59
--- NOTE | 2017-04-17 13:36 | History & Physical Report ---
History of Present Illness Date: 04/17/17 Chief complaint: weakness, hypokalemia, hyponatremia HPI: Michelle is a pleasant 81-year-old female who presents to the emergency room today for evaluation of acute weakness and anorexia for one week. Her reports that she has been ill for 7 days, last Friday on 04/12. She had a syncopal episode and was assisted up by her and son. Since that time she has continued to grow more week and is unable to take in any oral nutrition or medications. This morning she was so weak. She is not able to ambulate by herself. Has been also reports a cough over the last 2 days. This seems to be getting worse. Further medical evaluation did reveal decreased sodium of 122, and critically low potassium of 2.2. BUN is 22, creatinine 0.9. The WBC count is normal. Hemoglobin slightly down, 11.3. Urinalysis was unremarkable. Twelve- lead EKG performed showing sinus bradycardia rate of 53. Chest x-ray was performed. Given cough, however, did not show any acute process. Given severity of weakness, accompanied with electrolyte abnormalities. The hospitalist services were contacted and accepted patient for inpatient admission for further evaluation and treatment. It is expected that her stay will be greater than 2 overnights. Michelle is seen on initial examination. She is alert and oriented, however, appears lethargic and weak during exam. does note since this acute illness. She is having significant change in hearing with increased deficit. She does not complain of any pain or appreciate any specific unilateral weakness , rather a generalized lethargy. Patient has known aortic stenosis and is followed under the cardiology care of Dr King Leigh. She has routine ECHO evaluations with the last one being in october 2016, this revealed moderate thickening of the aortic valve with mild stenosis, EF 65-70%. A significant change from 2016. She was scheduled to have a repeat echocardiogram tomorrow. However, this is been canceled. We did discuss advanced directives and she does wish to be a full code. Review of Systems All systems PM: 10-point ROS was reviewed, no additional remarkable complaints except - Constitutional Constitutional: Present: anorexia, fatigue, lethargy, malaise - EENMT Ears: Present: as per HPI, other (hearing deficit) - Respiratory Respiratory: Present: cough PFSH Patient Stated Medical History Hypertension Aortic stenosis Cardiomegaly Dyslipidemia GERD History of mild hypokalemia- 133 in the past Osteoarthritis Surgical History: Colonoscopy, EGD-2011. Right hip replacement- 2012. Left hip replacement-2011. . Tonsillectomy Family History: Father-lung cancer, hypertension, congestive heart failure Mother-hypertension, congestive heart failure - Social History Smoking status: Never smoker Substance use type: does not use Alcohol intake frequency: does not drink Housing: house Household members: spouse Social history: Resides independently at home with , is active, still drives Primary care provider, Dr. Coleman Alatorre Driver Retraining Instructor- Dr King Mcdaniel Medications Home Medications Medication Instructions Recorded Confirmed Type Omeprazole 20 mg PO DAILY #0 11/21/11 04/17/17 History Rosuvastatin [Crestor] 5 mg PO DAILY #0 11/21/11 04/17/17 History Acetaminophen [Acetaminophen Extra 1,000 mg PO Q6H PRN 04/17/17 04/17/17 History Strength] Amlodipine [Norvasc] 2.5 mg PO DAILY 04/17/17 04/17/17 History Aspirin/Caffeine [Jenn Back & 2 tab PO Q4H PRN 04/17/17 04/17/17 History Body Caplet] Atenolol/Chlorthalidone 1 tab PO DAILY 04/17/17 04/17/17 History [Atenolol-Chlorthalidone 50-25] Hydrocodone/APAP 10/325 [[place] 1 tab PO QID PRN 04/17/17 04/17/17 History 10/325] Potassium Chloride [K-Tab ER] 20 meq PO BID 04/17/17 04/17/17 History Allergies Allergy/AdvReac Type Severity Reaction Status Date / Time iodine Allergy RASH FROM Verified 04/17/17 11:39 IODINE PREP lovastatin Allergy myalgias Verified 04/17/17 11:39 simvastatin Allergy headache, Verified 04/17/17 11:39 myalgias Exam Vital Signs: Temperature 97.7 F 04/17/17 13:23 Pulse Rate 64 04/17/17 13:00 Respiratory Rate 20 04/17/17 13:00 Blood Pressure 126/73 04/17/17 13:00 Pulse Oximetry 95 04/17/17 13:00 Telemetry Rhythm: Sinus Bradycardia Height/Weight/BMI: Height 1.6 m Weight 58.2 kg - Constitutional Present: no acute distress, thin - Routine HEENT Exam Eye: Present: EOMI ENT: Present: mucous membranes moist, dentition normal - Routine Respiratory Exam Present: CTA bilaterally. Absent: wheezes - Routine Cardiovascular Exam Present: RRR, S1, S2, murmur - Routine Abdominal Exam Present: soft, normoactive bowel sounds, non distended. Absent: tenderness - Routine Extremities Exam Present: normal capillary refill - Routine Skin Exam Present: dry, warm - Routine Neurological Exam Present: alert, oriented X3, CN II-XII intact, moving all extremities - Routine Psychiatric Exam Present: normal affect, cooperative Results - Labs CBC & Chem 7: 04/17/17 11:53 04/17/17 16:29 Microbiology Results: Microbiology 04/17/17 11:51 Peripheral/Iv Start Blood Culture - Preliminary Culture Initiated - Results Pending 04/17/17 11:53 Peripheral/Iv Start Blood Culture - Preliminary Culture Initiated - Results Pending Assessment and Plan (1) Weakness Current visit: Yes Status: Acute Assessment and Plan: Impression Significant weakness Hypokalemia, critical Hyponatremia Anorexia Recent syncopal episode - 04/12/17 Aortic Stenosis HTN Dyslipidemia GERD Plan Admit patient to inpatient status under the care of Dr Daigle for weakness and electrolyte abnormalities. Patient was given oral potassium supplementation 40 milliequivalents as well as IV potassium with normal saline infusion while in the emergency room. We'll plan to recheck electrolytes this afternoon at 1600 and then again at 2200. Will then add additional supplementation after that. Will monitor serial electrolytes closely. Patient cardiac telemetry given the left foot abnormalities. Given patient's syncopal episode and reported change in her hearing. Will obtain a CT scan of the head to rule out an acute intracranial abnormality or hemorrhage. Patient does have known aortic stenosis with last echo being in October. We will repeat this today and consult Dr. Blas for cardiac recommendations. She may have a clear liquid diet as she is able to tolerate She has not had any home medications for approximately 1 week, including potassium, as well as aspirin and blood pressure medications. Currently, blood pressure is stable. Will continue to monitor. Obtain magnesium and TSH for laboratory completeness on admission SCDs to bilateral lower extremity for DVT prophylaxis Patient is more medically stable, she would benefit from PT and OT consultation. Given that she is significantly weak and is independent at baseline. Again she does request to be a Full Code and this order is written. At time of discharge her medical care will return to PCP Dr. Landry Daigle M.D. 04/17/17, 1710 I have independently evaluated and examined this patient. I reviewed the chart, the patient's history, and the HEALTHCARE INSURANCE SALES AGENT/PA's documented findings as above. We discussed and formulated the assessment and plan as above with additions as below: Mrs. Bermudez was seen with her at the bedside. Her provided back of the history. The patient continues to deny syncope and currently is denying a fall last week. She reports that she's had the flu indicating nausea, some vomiting, diarrhea, and impaired appetite for about a week. Her confirms GI symptoms indicating that she's had nothing more than about one piece of toast in 3-4 days with limited intake of 7-Up and water. Patient describes feeling very weak. Her reports that she definitely passed out and was laying flat on her back and unable to to identify him immediately after the syncopal event. Patient has not been taking usual medications for the past week and doesn't like her potassium supplement because the pill is so large. She additionally complains of chronic back pain and cough which is chronic and unchanged from baseline. reports increased drowsiness for the past week but has not noted focal neurological deficits. Patient is slightly hard of hearing and a little drowsy but responds to questions appropriately. She is oriented [facility] and 20??, reports Lakhwinder is president. Respirations are nonlabored with decreased inspiratory effort, cardiac rhythm is regular with harsh systolic murmur. Abdomen is benign and extremities are without edema; skin tents slightly. The patient moves all extremities slowly but symmetrically; she does not raise her arms to the level of her head. Labs as described above with repeat sodium 129 after initial fluid replacement with normal saline in the emergency room. Repeat potassium 2.3. Magnesium 2.0, BNP 540. EKG demonstrates sinus bradycardia LVH, scooped/slurred ST segments with diffuse T-wave flattening and slightly erratic. CT head reviewed by myself-no acute pathology, mild atrophy and small vessel micro-vascular changes. Chest x-ray also reviewed by myself and reveals no acute pathology although some calcification is evident in the aorta. Echocardiogram on 11/04/16 revealed ejection fraction 65-70%, no regional wall motion abnormalities, grade 2 diastolic dysfunction, mild aortic stenosis, mild pulmonic and tricuspid regurgitation. Sodium was 129 when patient was discharged from the hospital a couple of years ago-suspect some component of chronic hyponatremia due to chronic diuretic use, may have had gradually progressive hypokalemia with recent worsening due to GI sx. Labs last evaluated in the office in November at which time sodium was 136 and potassium 3.9. Hemoglobin in June was 10.7. Additional potassium replacements with IV KCl tonight; check urine sodium/ osmolality/creatinine. Additional fluids to be given. PT/OT consults. Dr. Blas to assist regarding heart murmur, possible aortic stenosis. Discussed with Dr. Christian, Dr. Blas; outpatient and old hospital records reviewed. Supplemental history provided by patient's . DVT Prophylaxis: SCD's Resuscitation Status: Full Code Hospital Course Summary Disclaimer: The visit summary below is not to be considered part of the above Progress Note. Hospital Course: 04/17/17 Impression Significant weakness Hypokalemia Hyponatremia Anorexia Recent syncopal episode- 04/12/17 Aortic Stenosis HTN Dyslipidemia GERD Plan Admit patient to inpatient status under the care of Dr Daigle for weakness and electrolyte abnormalities. Patient was given oral potassium supplementation 40 milliequivalents as well as IV potassium with normal saline infusion while in the emergency room. We'll plan to recheck electrolytes this afternoon at 1600 and then again at 2200. Will then add additional supplementation after that. Will monitor serial electrolytes closely. Patient cardiac telemetry given the left foot abnormalities. Given patient's syncopal episode and reported change in her hearing. Will obtain a CT scan of the head to rule out an acute intracranial abnormality or hemorrhage. Patient does have known aortic stenosis with last echo being in October. We will repeat this today and consult Dr. Blas for cardiac recommendations. She may have a clear liquid diet as she is able to tolerate She has not had any home medications for approximately 1 week, including potassium, as well as aspirin and blood pressure medications. Currently, blood pressure is stable. Will continue to monitor. Obtain magnesium and TSH for laboratory completeness on admission SCDs to bilateral lower extremity for DVT prophylaxis Patient is more medically stable, she would benefit from PT and OT consultation. Given that she is significantly weak and is independent at baseline. Again she does request to be a Full Code and this order is written. At time of discharge her medical care will return to PCP Dr. Alatorre
[2017-04-17 14:17] VITALS: BMI 22.9
--- NOTE | 2017-04-17 14:39 | CT Scan Report ---
Indication: syncopal episode, hearing deficit, weakness PROCEDURE: CT head/brain wo con: Encounter: Initial Comparison: None Technique: Axial CT images through the head were performed without contrast. Iterative Reconstruction dose reducing technique was utilized. FINDINGS: Mild generalized atrophy. The ventricles are of normal size, shape, and contour for the patient's age. There are scattered areas of low attenuation in the white matter which most likely represent changes from chronic microvascular ischemia. The brainstem, cerebellum, and cerebral hemispheres otherwise have a normal morphology and CT attenuation. There is no evidence of midline displacement. No hemorrhage, signs of acute territorial stroke, mass effect, mass lesions, or edema is evident. The visualized portions of the skull base, midface, and calvarium demonstrate no abnormality. The paranasal sinuses are well aerated and free of significant disease. The tympanic and mastoid cavities appear normal. IMPRESSION: No acute intracranial abnormality or hemorrhage. .
[2017-04-17] MEDS ORDERED: ACETAMINOPHEN 500 MG TABLET PO PRN (14:48)
--- NOTE | 2017-04-17 14:57 | Cardiology Consult Note ---
<Flora Quiroz - Last Filed: 04/18/17 15:17> History of Present Illness Consult date: 04/17/17 Requesting physician: Lashae Daigle Consult reason: aortic stenosis Chief complaint: syncope History of present illness: Michelle is a 81 year old female who presented to the ED today for evaluation of acute weakness and anorexia for one week. Her reports that she has been ill for 7 days, last Friday on 04/12. She had a syncopal episode and was assisted up by her and son. Since that time she has continued to grow more week and is unable to take in any oral nutrition or medications. This morning she was so weak. She is not able to ambulate by herself. Has been also reports a cough over the last 2 days. This seems to be getting worse. In the ED she was found to have a sodium of 122, and critically low potassium of 2.2. BUN is 22, creatinine 0.9. The WBC count is normal. Hemoglobin slightly down, 11.3. Urinalysis was unremarkable. Twelve-lead EKG performed showing sinus bradycardia rate of 53. Chest x-ray was performed. Given cough, however, did not show any acute process. Given severity of weakness, accompanied with electrolyte abnormalities. The hospitalist services were contacted and accepted patient for inpatient admission for further evaluation and treatment. Michelle is seen and examined by Dr. Blas while in the ED. She appears lethargic and weak during exam and only answers few questions. at the bedside provides most of the history for the patient. She has known aortic stenosis and is followed under the cardiology care of Dr King Leigh. She has routine ECHO evaluations with the last one being in October 2016, this revealed moderate thickening of the aortic valve with mild stenosis, EF 65-70%. A significant change from 2016. She was scheduled to have a repeat echocardiogram tomorrow. However, this is been cancelled. Review of Systems - Constitutional Constitutional: Present: fatigue, lethargy, malaise, weakness. Absent: chills, fever(s) - EENMT Eyes: Absent: change in vision Ears: Present: other (hearing loss) Balance: Absent: vertigo Mouth/Throat: Absent: sore throat - Cardiovascular Cardiovascular: Present: syncope, heart murmur. Absent: chest pain, palpitations, dyspnea on exertion, orthopnea, edema Vascular: Absent: pedal edema - Respiratory Respiratory: Present: cough, dyspnea on exertion - Gastrointestinal Gastrointestinal: Absent: constipation, diarrhea, nausea, vomiting - Genitourinary Genitourinary: Absent: dysuria - Musculoskeletal Musculoskeletal: Present: muscle weakness - Integumentary/Breasts Integumentary: Absent: rash - Neurological Neurological: Present: weakness - Endocrine Endocrine: Absent: palpitations [facility] Medical History Hypokalemia (Acute Medical) Weakness (Acute Medical) Aortic stenosis (Acute Medical) Surgical History: Colonoscopy, EGD-2011. Right hip replacement- 2012. Left hip replacement-2011. . Tonsillectomy Family History: Father-lung cancer, hypertension, congestive heart failure Mother-hypertension, congestive heart failure - Social History Smoking status: Never smoker Substance use type: does not use Alcohol intake frequency: does not drink Housing: house Household members: spouse Current occupational status: retired Current residence: Apartment/Private Home Medications Home Medications Medication Instructions Recorded Confirmed Type Omeprazole 20 mg PO DAILY #0 11/21/11 04/17/17 History Rosuvastatin [Crestor] 5 mg PO DAILY #0 11/21/11 04/17/17 History Acetaminophen [Acetaminophen Extra 1,000 mg PO Q6H PRN 04/17/17 04/17/17 History Strength] Amlodipine [Norvasc] 2.5 mg PO DAILY 04/17/17 04/17/17 History Aspirin/Caffeine [Jenn Back & 2 tab PO Q4H PRN 04/17/17 04/17/17 History Body Caplet] Hydrocodone/APAP 10/325 [Stephen[place] 1 tab PO QID PRN 04/17/17 04/17/17 History 10/325] Allergies Allergy/AdvReac Type Severity Reaction Status Date / Time iodine Allergy RASH FROM Verified 04/17/17 11:39 IODINE PREP lovastatin Allergy myalgias Verified 04/17/17 11:39 simvastatin Allergy headache, Verified 04/17/17 11:39 myalgias Exam Vital signs: Temperature 97.7 F 04/17/17 13:23 Pulse Rate 57 L 04/17/17 13:51 Respiratory Rate 12 04/17/17 13:51 Blood Pressure 116/52 04/17/17 13:51 Pulse Oximetry 97 04/17/17 13:51 - Constitutional no acute distress, thin, cooperative - Routine HEENT Exam Head: Present: normocephalic ENT: Present: mucous membranes dry - Routine Neck Exam Absent: JVD, carotid bruit - Routine Chest/Breast/Axilla Exam Chest wall: Absent: tenderness - Routine Respiratory Exam Present: CTA bilaterally. Absent: rales, wheezes - Routine Cardiovascular Exam Present: murmur, bradycardia. Absent: JVD - Routine Abdominal Exam Present: soft, normoactive bowel sounds - Routine Extremities Exam Present: no edema - Routine Skin Exam Present: intact, dry, warm - Routine Neurological Exam Present: alert, oriented X3 - Routine Psychiatric Exam Present: normal affect Results 04/17/17 11:53 04/17/17 11:53 Intake and Output 04/16/17 04/17/17 04/17/17 22:59 06:59 14:59 Other: Weight 129 lb 10.109 oz Patient Weight 04/18/17 06:59 Weight 129 lb 10.109 oz Laboratory Results - last 24 hr 04/17/17 04/17/17 04/17/17 11:53 11:53 11:53 WBC 7.6 RBC 3.95 L Hgb 11.3 L Hct 33.4 L MCV 84.6 MCH 28.6 MCHC 33.8 RDW Std Deviation 40.3 Plt Count 265 MPV 8.6 L Immature Gran % (Auto) 0.3 Neut % (Auto) 72.2 H Lymph % (Auto) 16.4 L [place] % (Auto) 11.0 H Eos % (Auto) 0.1 Baso % (Auto) 0.0 Neut # (Auto) 5.5 Lymph # (Auto) 1.3 [place] # (Auto) 0.8 Eos # (Auto) 0.0 Baso # (Auto) 0.0 Abs Immat Gran (auto) 0.02 D-Dimer 211 Turbidity < 20 Sodium 122 L Potassium 2.2 L* Chloride 81 L Carbon Dioxide 29 Anion Gap 12 BUN 22.0 H Creatinine 0.9 GFR Calculation 60 BUN/Creatinine Ratio 24 Glucose 126 H Calculated Osmolality 241 L Calcium 10.2 Magnesium Total Bilirubin 0.60 Icterus Index < 2 AST 29 ALT 33 Alkaline Phosphatase 55 Creatine Kinase 85 Troponin I 0.111 B-Natriuretic Peptide 540 H Total Protein 6.7 Albumin 4.2 Globulin 2.5 Albumin/Globulin Ratio 1.7 Plasma Lactate 1.2 TSH 1.65 Specimen Hemolysis 19 Ur Collection Type Urine Color Urine Clarity Urine pH Ur Specific [place] Urine Protein Urine Glucose (UA) Urine Ketones Urine Occult Blood Urine Nitrate Urine Bilirubin Urine Urobilinogen Ur Leukocyte Esterase Urinalysis Comment 04/17/17 04/17/17 11:53 12:47 WBC RBC Hgb Hct MCV MCH MCHC RDW Std Deviation Plt Count MPV Immature Gran % (Auto) Neut % (Auto) Lymph % (Auto) [place] % (Auto) Eos % (Auto) Baso % (Auto) Neut # (Auto) Lymph # (Auto) [place] # (Auto) Eos # (Auto) Baso # (Auto) Abs Immat Gran (auto) D-Dimer Turbidity Sodium Potassium Chloride Carbon Dioxide Anion Gap BUN Creatinine GFR Calculation BUN/Creatinine Ratio Glucose Calculated Osmolality Calcium Magnesium 2.0 Total Bilirubin Icterus Index AST ALT Alkaline Phosphatase Creatine Kinase Troponin I B-Natriuretic Peptide Total Protein Albumin Globulin Albumin/Globulin Ratio Plasma Lactate TSH Cancelled Specimen Hemolysis Ur Collection Type Urine, clean catch Urine Color Yellow Urine Clarity Clear Urine pH 6.5 Ur Specific [place] 1.010 L Urine Protein Negative Urine Glucose (UA) Negative Urine Ketones Negative Urine Occult Blood Negative Urine Nitrate Negative Urine Bilirubin Negative Urine Urobilinogen 0.2 Ur Leukocyte Esterase Negative Urinalysis Comment Microscopic not ind. - Imaging and Cardiology Echo: pending Imaging & Cardiology Narrative: Date of Exam: 04/17/17 Ordering Provider: Lyudmila Hutchins APRN Type of Exam(s): CT head/brain wo con Reason for Exam(s): syncopal episode, hearing deficit, weakness Indication: syncopal episode, hearing deficit, weakness PROCEDURE: CT head/brain wo con: Encounter: Initial Comparison: None Technique: Axial CT images through the head were performed without contrast. Iterative Reconstruction dose reducing technique was utilized. FINDINGS: Mild generalized atrophy. The ventricles are of normal size, shape, and contour for the patient's age. There are scattered areas of low attenuation in the white matter which most likely represent changes from chronic microvascular ischemia. The brainstem, cerebellum, and cerebral hemispheres otherwise have a normal morphology and CT attenuation. There is no evidence of midline displacement. No hemorrhage, signs of acute territorial stroke, mass effect, mass lesions, or edema is evident. The visualized portions of the skull base, midface, and calvarium demonstrate no abnormality. The paranasal sinuses are well aerated and free of significant disease. The tympanic and mastoid cavities appear normal. IMPRESSION: No acute intracranial abnormality or hemorrhage. Date of Exam: 04/17/17 Ordering Provider: Alec Christian DO Type of Exam(s): XR chest 1V Reason for Exam(s): Weakness Indication: Weakness PROCEDURE: XR chest 1V: Encounter: Initial Comparison: None FINDINGS: The lungs are clear. There is no abnormal airspace opacity, pleural effusion or pneumothorax identified. Overlying monitoring leads. The heart size, pulmonary vasculature and mediastinum are within normal limits. No significant skeletal abnormality is seen. IMPRESSION: No acute cardiopulmonary abnormality. EKG interpretations - EKG EKG results cardiology: sinus rhythm EKG shows: bradycardia Assessment and Plan - Assessment and Plan (1) Aortic stenosis Status: Chronic - Severe Aortic stenosis by exam - IVF for rehydration - Repeat echo for evaluation of stenosis - Hold home Atenolol/Chlorthalidone and Amlodipine (2) Hypokalemia Status: Acute (3) Weakness Status: Acute (4) Syncope Status: Acute Likely due to low fluid volume and - replace IVF - trend serial troponin levels - Assessment and Plan Syncope: Likely due to low fluid volume and - replace IVF - trend serial troponin levels Severe Aortic stenosis by exam - IVF for rehydration - Repeat echo for evaluation of stenosis - Hold home Atenolol/Chlorthalidone and Amlodipine - replace potassium, monitor electrolytes Thank you for allowing us to participate in the care of this patient. Hospital Course Summary Disclaimer: The visit summary below is not to be considered part of the above Progress Note. Hospital Course: 04/17/17 Impression Significant weakness Hypokalemia Hyponatremia Anorexia Recent syncopal episode- 04/12/17 Aortic Stenosis HTN Dyslipidemia GERD Plan Admit patient to inpatient status under the care of Dr Daigle for weakness and electrolyte abnormalities. Patient was given oral potassium supplementation 40 milliequivalents as well as IV potassium with normal saline infusion while in the emergency room. We'll plan to recheck electrolytes this afternoon at 1600 and then again at 2200. Will then add additional supplementation after that. Will monitor serial electrolytes closely. Patient cardiac telemetry given the left foot abnormalities. Given patient's syncopal episode and reported change in her hearing. Will obtain a CT scan of the head to rule out an acute intracranial abnormality or hemorrhage. Patient does have known aortic stenosis with last echo being in October. We will repeat this today and consult Dr. Blas for cardiac recommendations. She may have a clear liquid diet as she is able to tolerate She has not had any home medications for approximately 1 week, including potassium, as well as aspirin and blood pressure medications. Currently, blood pressure is stable. Will continue to monitor. Obtain magnesium and TSH for laboratory completeness on admission SCDs to bilateral lower extremity for DVT prophylaxis Patient is more medically stable, she would benefit from PT and OT consultation. Given that she is significantly weak and is independent at baseline. Again she does request to be a Full Code and this order is written. At time of discharge her medical care will return to PCP Dr. Alatorre <Donald Blas - Last Filed: 04/22/17 07:39> [facility] Patient Stated Medical History Cataracts Yes: bilateral-removed Hearing Loss Yes Heart Murmur Yes Valvular Heart Disease Yes Osteoarthritis Yes Clinic Medical History Hypokalemia (Resolved Medical) Potassium 2.2 on admission Weakness (Resolved Medical) Aortic stenosis (Chronic Medical) Syncope (Resolved Medical) Hyponatremia (Resolved Medical) Sodium 122 on admission Exam Vital signs: Temperature 98.5 F 04/21/17 07:18 Pulse Rate 73 04/21/17 08:00 Respiratory Rate 16 04/21/17 07:18 Blood Pressure 129/69 04/21/17 07:18 Pulse Oximetry 93 04/21/17 07:18 Results 04/21/17 05:06 04/21/17 05:06 Assessment and Plan - Attestation Attestation Narrative: 04/22/17 07:39 Recommendation After examining the patient I agree with the above assessment. I am involved in the formulation of the patient's plan of care. - Assessment and Plan (1) Hypokalemia Problem details: Potassium 2.2 on admission Status: Resolved (2) Weakness Status: Resolved (3) Aortic stenosis Status: Chronic (4) Syncope Status: Resolved Hospital Course Summary Disclaimer: The visit summary below is not to be considered part of the above Progress Note.
[2017-04-17] MEDS: HYDROCODONE/APAP 10 MG/325 MG TABLET PO PRN (16:56)
[2017-04-17] MEDS: LIDOCAINE 1% 2ml INJ 10 MG, POTASSIUM CHLORIDE INJ 10 MEQ in NS 100 ML IV SCH ×4 (18:57→22:46)
[2017-04-18] MEDS: POTASSIUM CHLORIDE PREMIX 10 MEQ/100 ML BAG IV SCH ×4 (00:15→03:45)
[2017-04-18] MEDS: NS FLUSH BAG 500ml IV PRN (00:20)
[2017-04-18] MEDS: HYDROCODONE/APAP 10 MG/325 MG TABLET PO PRN ×4 (03:55→22:16)
[2017-04-18] MEDS: NS with KCL 20 mEq 1,000 ML IV SCH ×3 (05:05→22:17)
[2017-04-18] MEDS: OMEPRAZOLE 20 MG CAPSULE PO SCH (05:37)
[2017-04-18] MEDS: ROSUVASTATIN 5 MG TABLET PO SCH (09:38)
[2017-04-18] MEDS: LIDOCAINE 1% 2ml INJ 10 MG, POTASSIUM CHLORIDE INJ 10 MEQ in NS 100 ML IV SCH ×4 (10:49→14:11)
--- NOTE | 2017-04-18 14:12 | Progress Note ---
<Latoya Michael D - Last Filed: 04/18/17 14:09> - Date 04/18/17 Subjective: Michelle was in bed, drowsy, and refusing PT/OT eval. She also refused to work with them this am. At baseline she uses a cane; here, she's been up with 1-2, using a walker. RN reports a steady gait. Michelle didn't eat much for breakfast, in fact, was very groggy. She ate quite well for lunch. She denies SOA or chest pain. No abdominal pain or GI complaints. Her verbal responses are slightly delayed; some subjective concern for confusion. Objective Vital signs: Temperature 97.5 F 04/18/17 09:00 Pulse Rate 59 L 04/18/17 09:00 Respiratory Rate 18 04/18/17 09:00 Blood Pressure 149/67 H 04/18/17 09:00 Pulse Oximetry 97 04/18/17 09:00 Height/Weight/BMI: Height 1.6 m Weight 61 kg Body Mass Index 22.9 - Constitutional Present: no acute distress, well nourished, well developed - Routine HEENT Exam Eye: Absent: conjunctival icterus, scleral injection ENT: Present: mucous membranes moist Comments: SHISHMAREF IRA - Routine Respiratory Exam Present: CTA bilaterally - Routine Cardiovascular Exam Present: RRR, S1, S2, murmur (systolic) - Routine Abdominal Exam Present: soft, normoactive bowel sounds, non distended, non tender - Routine Extremities Exam Present: no edema, pulses intact - Routine Musculoskeletal Exam Musculoskeletal: Present: surgical scar (B/L knees - highly suspicious of knee replacements) - Routine Skin Exam Present: dry, warm - Routine Neurological Exam Present: alert, normal speech. Absent: facial asymmetry - Routine Psychiatric Exam Present: normal affect Results - Labs CBC & Chem 7: 04/18/17 05:13 04/18/17 05:13 Assessment and Plan (1) Weakness Current visit: Yes Status: Acute Assessment and Plan: Impression Significant weakness Hypokalemia, critical Hyponatremia Anorexia Recent syncopal episode - 04/12/17 Diastolic heart failure, Mild valvular disease -Echocardiogram (11/04/16) revealed EF 65-70%, no regional wall motion abnormalities, grade 2 diastolic dysfunction, mild aortic stenosis, mild pulmonic and tricuspid regurgitation. HTN Dyslipidemia GERD Plan Electrolytes showing improvement with K up to 3.3 and Na stable at 130; urine creatinine 29.9, Na 25 (L), osm pending. Oral intake improving - reduce rate of IVF. Continue oral replacement of K. BMP in am. Seen by cardiology today; repeat echo pending. Hgb decreased to 10.5 - repeat CBC in am. PT/OT eval pending (pt refused x2) - RN will call them next time she needs to get up for the bathroom so they can at least get a preliminary assessment. TSH normal at 1.6. Head CT - mild atrophy; no acute findings. DVT Prophylaxis: SCD's GI Prophylaxis: other (Prilosec) Resuscitation Status: Full Code Hospital Course Summary Disclaimer: The visit summary below is not to be considered part of the above Progress Note. Hospital Course: 04/17/17 Impression Significant weakness Hypokalemia Hyponatremia Anorexia Recent syncopal episode- 04/12/17 Aortic Stenosis HTN Dyslipidemia GERD Plan Admit patient to inpatient status under the care of Dr Daigle for weakness and electrolyte abnormalities. Patient was given oral potassium supplementation 40 milliequivalents as well as IV potassium with normal saline infusion while in the emergency room. We'll plan to recheck electrolytes this afternoon at 1600 and then again at 2200. Given patient's syncopal episode and reported change in her hearing. Will obtain a CT scan of the head to rule out an acute intracranial abnormality or hemorrhage. Patient does have known aortic stenosis with last echo being in October. We will repeat this today and consult Dr. Blas for cardiac recommendations. She may have a clear liquid diet as she is able to tolerate She has not had any home medications for approximately 1 week, including potassium, as well as aspirin and blood pressure medications. Obtain magnesium and TSH for laboratory completeness on admission Patient is more medically stable, she would benefit from PT and OT consultation. Given that she is significantly weak and is independent at baseline. 04/18/17 Electrolytes showing improvement with K up to 3.3 and Na stable at 130; urine creatinine 29.9, Na 25 (L), osm pending. Oral intake improving - reduce rate of IVF. Continue oral replacement of K. BMP in am. Seen by cardiology today; repeat echo pending. Hgb decreased to 10.5 - repeat CBC in am. PT/OT eval pending (pt refused x2) - RN will call them next time she needs to get up for the bathroom so they can at least get a preliminary assessment. TSH normal at 1.6. Head CT - mild atrophy; no acute findings. <Lashae Daigle - Last Filed: 04/18/17 20:32> - Date 04/18/17 Results - Labs CBC & Chem 7: 04/18/17 05:13 04/18/17 18:40 Assessment and Plan (1) Hypokalemia Problem details: Potassium 2.2 on admission Current visit: Yes Status: Acute (2) Hyponatremia Problem details: Sodium 122 on admission Current visit: Yes Status: Acute (3) Weakness Current visit: Yes Status: Acute (4) Syncope Current visit: Yes Status: Acute Assessment and Plan: I have independently evaluated and examined this patient. I reviewed the chart, the patient's history, and the DEALERSHIP MANAGER/PA's documented findings as above. We discussed and formulated the assessment and plan as above with additions as below: Patient reports that she didn't sleep well at night due to ongoing back pain, has napped much of the day today. She also complaints of constipation. She eventually worked with PT/OT briefly today and senior living was recommended. Oral intake remains poor with patient eating little more than toast and some juice. NAD Respirations nonlabored, clear breath sounds the upper two thirds of the posterior lung benites but breath sounds are diminished below that 2-3/6 systolic ejection murmur, unchanged from yesterday, regular cardiac rhythm Benign abdomen Echocardiogram yesterday revealed moderate aortic stenosis with valve area 1.2 cm, preserved ejection fraction of 60%, mild to moderate MR, mild to moderate TR with moderate pulmonary hypertension and PA pressure of 50. Repeat electrolytes this afternoon with sodium 133 and potassium of 3.6. Telemetry reviewed by myself-sinus rhythm. Slow improvement metabolically off diuretic and with saline and potassium replacement. Continue NS with 20 mEq KCl at low rate, decrease oral potassium to 20 mEq daily. Add MiraLAX/Senokot for constipation. Initiate nutritional supplements. Worsening valvular heart disease compared to echo 3 months ago noted. Family updated on changes. In addition to above diagnoses please add: #1 normocytic anemia #2 constipation #3 pulmonary hypertension, moderate Hospital Course Summary Disclaimer: The visit summary below is not to be considered part of the above Progress Note.
--- NOTE | 2017-04-18 15:21 | Cardiology Progress Note ---
<Flora Quiroz - Last Filed: 04/18/17 19:14> Subjective Principal diagnosis: Aortic stenosis Interval history: Michelle is seen in follow up today for Aortic stenosis. She is in bed nut reports she was able to walk to the bathroom today. She denies chest pain, palpitations , dizziness or lightheadedness. Exam Vital signs: Temperature 97.5 F 04/18/17 09:00 Pulse Rate 59 L 04/18/17 09:00 Respiratory Rate 18 04/18/17 09:00 Blood Pressure 149/67 H 04/18/17 09:00 Pulse Oximetry 97 04/18/17 09:00 - Constitutional no acute distress, thin, cooperative - Routine HEENT Exam Head: Present: normocephalic ENT: Present: mucous membranes moist - Routine Neck Exam Absent: JVD, carotid bruit - Routine Chest/Breast/Axilla Exam Chest wall: Absent: tenderness - Routine Respiratory Exam Present: CTA bilaterally. Absent: rales, wheezes - Routine Cardiovascular Exam Present: murmur, bradycardia - Routine Abdominal Exam Present: soft, normoactive bowel sounds - Routine Extremities Exam Present: no edema - Routine Skin Exam Present: intact, dry, warm - Routine Neurological Exam Present: alert, oriented X3 - Routine Psychiatric Exam Present: normal affect - Additional findings Additional findings: Acetaminophen (Tylenol) 1,000 mg PO Q6H PRN PRN Reason: Pain Hydrocodone Bitart/Acetaminophen (Baxter 10/325) 1 tab PO QID PRN PRN Reason: Pain Last Admin: 04/18/17 16:46 Dose: 1 tab Potassium Chloride/Sodium Chloride (Ns With Kcl 20 Meq) 1,000 mls @ 60 mls/hr IV .[id number] S[facility] Last Infusion: 04/18/17 15:20 Dose: 60 mls/hr Omeprazole (Prilosec) 20 mg PO ACB SENTHIL Last Admin: 04/18/17 05:37 Dose: 20 mg Potassium Chloride (K-Dur) 20 meq PO BIDWM SENTHIL Last Admin: 04/18/17 16:46 Dose: 20 meq Rosuvastatin Calcium (Crestor) 5 mg PO DAILY SENTHIL Last Admin: 04/18/17 09:38 Dose: 5 mg Sodium Chloride (Iv Flush) 10 - 80 ml IVF PRN PRN PRN Reason: Flushing Last Admin: 04/17/17 12:05 Dose: 10 ml Sodium Chloride (Normal Saline) 500 ml IV PRN PRN Last Admin: 04/18/17 00:20 Dose: 500 ml - Urinary Catheter Management Straight Cath placed during this visit: yes Insertion date: 04/17/17 Insertion time: 12:45 Results 04/18/17 05:13 04/18/17 18:40 Cardiac Enzymes 04/17/17 04/17/17 04/18/17 Range/Units 16:29 21:37 05:13 Troponin I 0.113 0.095 0.073 (0-0.12) ng/ml CBC 04/18/17 Range/Units 05:13 WBC 6.2 (4.5-11.0) T/MM3 RBC 3.62 L (4.00-5.20) M/MM3 Hgb 10.5 L (12-16) GM/DL Hct 30.9 L (36-46) % Plt Count 268 (130-400) T/MM3 Neut # (Auto) 3.7 (1.8-7.7) T/MM3 Lymph # (Auto) 1.8 (1-4.8) T/MM3 [place] # (Auto) 0.7 (0-0.8) T/MM3 Eos # (Auto) 0.0 (0-0.5) T/MM3 Baso # (Auto) 0.0 (0-0.2) T/MM3 Comprehensive Metabolic Panel 04/17/17 04/17/17 04/18/17 Range/Units 16:29 21:37 05:13 Sodium 129 L D 130 L 130 L (134-144) MEQ/L Potassium 2.3 L* 2.3 L* 3.3 L D (3.6-5) MEQ/L Chloride 90 L D 93 L 96 L (98-107) MEQ/L Carbon Dioxide 27 27 25 (22-30) MEQ/L BUN 18.0 H 16.0 13.0 (7-17) MG/DL Creatinine 0.7 D 0.7 0.6 L (0.7-1.2) MG/DL Glucose 101 126 H 102 (65-110) MG/DL Calcium 9.5 9.2 9.3 (8.4-10.2) MG/DL Albumin 3.3 L (3.5-5.0) G/DL Intake and Output 04/18/17 04/18/17 04/18/17 06:59 14:59 22:59 Intake Total 600 / 600 1771.666 / 1771.666 Output Total 400 / 400 300 / 300 Balance 200 / 200 1471.666 / 1471.666 Intake: IV 500 / 500 961.666 / 961.666 LIDOCAINE 1% 2ml INJ 10 100 / 100 298.333 / 298.333 mg Potassium Chloride Inj 10 meq In Ns 100 ml @ 100 mls/hr IV .Q1H [facility] Rx #:[id number] NS with KCL 20 mEq 1,000 663.333 / 663.333 ml @ 100 mls/hr IV .Q10H [facility] Rx#:[id number] Potassium Chloride Premix 400 / 400 10 meq In 100 ml @ 100 mls/hr IV Q1H [facility] Rx#: [id number] Oral 100 / 100 810 / 810 Output: Urine 400 / 400 300 / 300 Other: Urine Appearance Clear Clear Urine Color Dark Yellow Bright Yellow Urine Odor Normal Weight 134 lb 7.712 oz Patient Weight 04/19/17 06:59 Weight 134 lb 7.712 oz - Imaging and Cardiology Imaging & Cardiology Narrative: Date of Exam: 04/17/17 Type of Exam(s): US echo doppler complete DATE OF PROCEDURE April 17, 2017. This is a two-dimensional echo with spectral Doppler, color-flow and M-mode. It was obtained in a patient with aortic stenosis and weakness. Left atrial dimension is normal. Left ventricular end-diastolic dimension is normal. Left ventricular wall thickness is normal. LV systolic function is normal with ejection fraction of 60%. Right atrium is normal. Right ventricle is normal. Mitral valve annulus is calcified. Mitral valve leaflets are normal with bria-pp-yrvhrbec mitral regurgitation. Aortic valve shows fibrocalcific changes with restriction on opening motion. Transaortic velocities are increased with peak velocity of 3.8 m/sec with peak gradient of 58 and mean gradient of 34. Aortic valve area is calculated at 1.2 cm2. There is no aortic insufficiency. Tricuspid valve shows wcsc-du-alfgfeur tricuspid regurgitation with moderate pulmonary hypertension with estimated pulmonary artery systolic pressure of 50. Pulmonary valve shows mild pulmonary insufficiency. There is no pericardial effusion. IMPRESSION 1. Normal LV systolic function with ejection fraction of 60%. 2. Mitral annulus calcification with ftsv-ca-hoigqrrx mitral regurgitation. 3. Moderate aortic stenosis with a valve area of 1.2 cm2. 4. Fmle-se-dchyhgho tricuspid regurgitation with moderate pulmonary hypertension with estimated pulmonary artery systolic pressure of 50. 5. Mild pulmonary insufficiency. 04/18/17 19:17 Assessment and Plan - Assessment and Plan (1) Aortic stenosis Status: Chronic (2) Hypokalemia Status: Acute (3) Weakness Status: Acute (4) Syncope Status: Acute - Assessment and Plan Syncope: Likely due to low fluid volume and - replace IVF - trend serial troponin levels Severe Aortic stenosis by exam - IVF for rehydration - Repeat echo for evaluation of stenosis - Hold home Atenolol/Chlorthalidone and Amlodipine - replace potassium, monitor electrolytes Thank you for allowing us to participate in the care of this patient. 04/18/17 Improved with IVF -replace potassium per hospitalist -Continue to monitor cardiac telemetry Hospital Course Summary Disclaimer: The visit summary below is not to be considered part of the above Progress Note. Hospital Course: 04/17/17 Impression Significant weakness Hypokalemia Hyponatremia Anorexia Recent syncopal episode- 04/12/17 Aortic Stenosis HTN Dyslipidemia GERD Plan Admit patient to inpatient status under the care of Dr Daigle for weakness and electrolyte abnormalities. Patient was given oral potassium supplementation 40 milliequivalents as well as IV potassium with normal saline infusion while in the emergency room. We'll plan to recheck electrolytes this afternoon at 1600 and then again at 2200. Will then add additional supplementation after that. Will monitor serial electrolytes closely. Patient cardiac telemetry given the left foot abnormalities. Given patient's syncopal episode and reported change in her hearing. Will obtain a CT scan of the head to rule out an acute intracranial abnormality or hemorrhage. Patient does have known aortic stenosis with last echo being in October. We will repeat this today and consult Dr. Blas for cardiac recommendations. She may have a clear liquid diet as she is able to tolerate She has not had any home medications for approximately 1 week, including potassium, as well as aspirin and blood pressure medications. Currently, blood pressure is stable. Will continue to monitor. Obtain magnesium and TSH for laboratory completeness on admission SCDs to bilateral lower extremity for DVT prophylaxis Patient is more medically stable, she would benefit from PT and OT consultation. Given that she is significantly weak and is independent at baseline. Again she does request to be a Full Code and this order is written. At time of discharge her medical care will return to PCP Dr. Alatorre <Donald Blas - Last Filed: 04/22/17 07:42> Exam Vital signs: Temperature 98.5 F 04/21/17 07:18 Pulse Rate 73 04/21/17 08:00 Respiratory Rate 16 04/21/17 07:18 Blood Pressure 129/69 04/21/17 07:18 Pulse Oximetry 93 04/21/17 07:18 - Urinary Catheter Management Straight Cath placed during this visit: no Results 04/21/17 05:06 04/21/17 05:06 Assessment and Plan - Assessment and Plan (1) Hypokalemia Problem details: Potassium 2.2 on admission Status: Resolved (2) Weakness Status: Resolved (3) Aortic stenosis Status: Chronic (4) Syncope Status: Resolved - Attestation Attestation Narrative: 04/22/17 07:42 Recommendation After examining the patient I agree with the above assessment. I am involved in the formulation of the patient's plan of care. Hospital Course Summary Disclaimer: The visit summary below is not to be considered part of the above Progress Note.
--- NOTE | 2017-04-18 16:54 | Echocardiogram ---
DATE OF PROCEDURE April 17, 2017. This is a two-dimensional echo with spectral Doppler, color-flow and M-mode. It was obtained in a patient with aortic stenosis and weakness. Left atrial dimension is normal. Left ventricular end-diastolic dimension is normal. Left ventricular wall thickness is normal. LV systolic function is normal with ejection fraction of 60%. Right atrium is normal. Right ventricle is normal. Mitral valve annulus is calcified. Mitral valve leaflets are normal with argw-jl-ojghxnkb mitral regurgitation. Aortic valve shows fibrocalcific changes with restriction on opening motion. Transaortic velocities are increased with peak velocity of 3.8 m/sec with peak gradient of 58 and mean gradient of 34. Aortic valve area is calculated at 1.2 cm2. There is no aortic insufficiency. Tricuspid valve shows hvyf-gm-dcernbqk tricuspid regurgitation with moderate pulmonary hypertension with estimated pulmonary artery systolic pressure of 50. Pulmonary valve shows mild pulmonary insufficiency. There is no pericardial effusion. IMPRESSION 1. Normal LV systolic function with ejection fraction of 60%. 2. Mitral annulus calcification with trqv-ww-pexxsowl mitral regurgitation. 3. Moderate aortic stenosis with a valve area of 1.2 cm2. 4. Eypv-pz-lubpegvd tricuspid regurgitation with moderate pulmonary hypertension with estimated pulmonary artery systolic pressure of 50. 5. Mild pulmonary insufficiency. MTDD
[2017-04-18] MEDS: SENNA + DOCUSATE TABLET PO SCH (22:20)
[2017-04-19] MEDS: NS with KCL 20 mEq 1,000 ML IV SCH (05:58)
[2017-04-19] MEDS: HYDROCODONE/APAP 10 MG/325 MG TABLET PO PRN ×3 (06:23→17:08)
[2017-04-19] MEDS: OMEPRAZOLE 20 MG CAPSULE PO SCH (06:24)
[2017-04-19] MEDS: POLYETHYL GLYCOL 3350 17gm PACKET PO SCH (08:05)
[2017-04-19] MEDS: SENNA + DOCUSATE TABLET PO SCH ×2 (08:05→20:25)
[2017-04-19] MEDS: ROSUVASTATIN 5 MG TABLET PO SCH (08:05)
--- NOTE | 2017-04-19 15:30 | Progress Note ---
- Date 04/19/17 Subjective: Michelle is a pleasant 81-year-old female who presents to the emergency room today for evaluation of acute weakness and anorexia for one week. Her reports that she has been ill for 7 days. She had a questionable syncopal episode and was assisted up by her and son. When her found her she was awake. Since that time she has continued to grow more weak and is unable to take in any oral nutrition or medications. This morning she was so weak. she was not able to ambulate by herself. She has had a cough over the last 2 days which seems to have gotten worse. Further medical evaluation did reveal decreased sodium of 122, and critically low potassium of 2.2. BUN is 22, creatinine 0.9. The WBC count is normal. Hemoglobin slightly down, 11.3. ( however this is actually high for her) Urinalysis was unremarkable. Twelve-lead EKG performed showing sinus bradycardia rate of 53. Chest x-ray was unremarkable. Given severity of weakness, accompanied with electrolyte abnormalities. The hospitalist services were contacted and accepted patient for inpatient admission for further evaluation and treatment. It is expected that her stay will be greater than 2 overnights. Patient has known aortic stenosis and is followed under the cardiology care of Dr King Leigh. She has routine ECHO evaluations with the last one being in october 2016, this revealed moderate thickening of the aortic valve with mild stenosis, EF 65-70%. A significant change from 2016. She was scheduled to have a repeat echocardiogram tomorrow. However, this has been canceled. A repeat echo was done here. I have reviewed it and the aortic valve appears thickened by is not significantly stenosed. She does appear to have some systolic anterior motion of the anterior aortic valve that may be attributing to the elevated mean gradient. Her EF is normal at 60%. She has moderate MR and moderate PHTN. Today, she is feeling a bit better. She is complaining of back pain. She is still not eating much but better than she did at home. She states she is trying. She is very weak. Tele today showed 14 beats of SVT (?afib rvr). SHe was asymptomatic. She denies lightheadedness, dizziness, palp, SOA, CP. She denies nausea, vomiting, diarrhea. No abdominal pain. No BM since admission. Looking back, her prior labs in 2012 she was anemic in the 7-9 range. I think the 11 on admission was high due to dehydration. Her BP and HR are reasonable. Objective Vital signs: Temperature 97.6 F 04/19/17 07:00 Pulse Rate 64 04/19/17 08:00 Respiratory Rate 18 04/19/17 07:00 Blood Pressure 121/64 04/19/17 07:00 Pulse Oximetry 97 04/18/17 23:57 Height/Weight/BMI: Height 1.6 m Weight 59.874 kg Body Mass Index 22.9 Comments: Gen: alert and oriented. NAD Skin: warm and dry HEENT: NC/AT PERRL, EOMI, Sclera, lids and conjunctiva wnl, dry MM, OP clear Neck: supple. No JVD, Carotids 2+ without bruits. Lungs: clear, No rales, rhonchi, wheezes. CV: regular. 3/6 ALLEN no radiation to carotids. Abd: soft. NT/ND, +BS MS: No edema. Reasonable strength Neuro: No focal deficit Results - Labs CBC & Chem 7: 04/19/17 04:29 04/19/17 04:29 Assessment and Plan (1) Hypokalemia Problem details: Potassium 2.2 on admission Current visit: Yes Status: Acute (2) Weakness Current visit: Yes Status: Acute (3) Syncope Current visit: Yes Status: Acute (4) Hyponatremia Problem details: Sodium 122 on admission Current visit: Yes Status: Acute Assessment and Plan: 1. Significant weakness -likely related to dehydration and hypokalemia 2. Hypokalemia, critical -Low normal at present, will replace again today -Follow labs 3. Hyponatremia -Improved -Continue to follow 4. Anorexia -add supplements -Encourage po intake 5. Recent syncopal episode(?)- 04/12/17 -Possibly due to dehydration/orthostatic vs hypokalemia/arrhythmia 6. VHD -Aortic stenosis/Possible LVOT obstruction with EDDA -would avoid dehydration!! -Moderate MR -Mild TR 7. Diastolic heart failure -grade 2 7. HTN -Off home norvasc 2.5mg daily and atenolol/chlorthalidone 50/25mg daily -Good control off meds here. 8. Arrhythmia -SVT -Off BBl at present, asymptomatic -Continue to follow. 9. Anemia -?acute vs chronic -delutional -check iron panel and stools for OB 10. Dyslipidemia -On statin 11. GERD -On PPI 12. Moderate PHTN 13. Constipation -Senna, miralax 14. Prophylaxis -PPI 15. Dispo -PT recommends SKilled nsg Hospital Course Summary Disclaimer: The visit summary below is not to be considered part of the above Progress Note. Hospital Course: 04/17/17 Impression Significant weakness Hypokalemia Hyponatremia Anorexia Recent syncopal episode- 04/12/17 Aortic Stenosis HTN Dyslipidemia GERD Plan Admit patient to inpatient status under the care of Dr Daigle for weakness and electrolyte abnormalities. Patient was given oral potassium supplementation 40 milliequivalents as well as IV potassium with normal saline infusion while in the emergency room. We'll plan to recheck electrolytes this afternoon at 1600 and then again at 2200. Will then add additional supplementation after that. Will monitor serial electrolytes closely. Patient cardiac telemetry given the left foot abnormalities. Given patient's syncopal episode and reported change in her hearing. Will obtain a CT scan of the head to rule out an acute intracranial abnormality or hemorrhage. Patient does have known aortic stenosis with last echo being in October. We will repeat this today and consult Dr. Blas for cardiac recommendations. She may have a clear liquid diet as she is able to tolerate She has not had any home medications for approximately 1 week, including potassium, as well as aspirin and blood pressure medications. Currently, blood pressure is stable. Will continue to monitor. Obtain magnesium and TSH for laboratory completeness on admission SCDs to bilateral lower extremity for DVT prophylaxis Patient is more medically stable, she would benefit from PT and OT consultation. Given that she is significantly weak and is independent at baseline. Again she does request to be a Full Code and this order is written. At time of discharge her medical care will return to PCP Dr. Alatorre
[2017-04-19] MEDS: DimenhyDRINATE 50 MG TABLET PO PRN (22:47)
[2017-04-20] MEDS: OMEPRAZOLE 20 MG CAPSULE PO SCH (06:08)
[2017-04-20] MEDS: HYDROCODONE/APAP 10 MG/325 MG TABLET PO PRN ×3 (06:54→22:23)
[2017-04-20] MEDS ORDERED: MAGNESIUM SULFATE 1gm PREMIX 1 GM/100 ML BAG IV SCH (08:00)
[2017-04-20] MEDS: SENNA + DOCUSATE TABLET PO SCH ×2 (08:33→22:24)
[2017-04-20] MEDS: POLYETHYL GLYCOL 3350 17gm PACKET PO SCH (08:33)
[2017-04-20] MEDS: NS FLUSH BAG 500ml IV PRN (08:33)
[2017-04-20] MEDS: ROSUVASTATIN 5 MG TABLET PO SCH (08:33)
[2017-04-20] MEDS: MAGNESIUM SULFATE 1gm PREMIX 1 GM/100 ML BAG IV SCH ×4 (08:34→15:31)
[2017-04-20] MEDS: DimenhyDRINATE 50 MG TABLET PO PRN (08:42)
--- NOTE | 2017-04-20 11:22 | Progress Note ---
- Date 04/20/17 Subjective: Michelle is a pleasant 81-year-old female who presents to the emergency room today for evaluation of acute weakness and anorexia for one week. Her reports that she has been ill for 7 days. She had a questionable syncopal episode and was assisted up by her and son. When her found her she was awake. Since that time she has continued to grow more weak and is unable to take in any oral nutrition or medications. This morning she was so weak. she was not able to ambulate by herself. She has had a cough over the last 2 days which seems to have gotten worse. Further medical evaluation did reveal decreased sodium of 122, and critically low potassium of 2.2. BUN is 22, creatinine 0.9. The WBC count is normal. Hemoglobin slightly down, 11.3. ( however this is actually high for her) Urinalysis was unremarkable. Twelve-lead EKG performed showing sinus bradycardia rate of 53. Chest x-ray was unremarkable. Given severity of weakness, accompanied with electrolyte abnormalities. The hospitalist services were contacted and accepted patient for inpatient admission for further evaluation and treatment. It is expected that her stay will be greater than 2 overnights. Patient has known aortic stenosis and is followed under the cardiology care of Dr King Leigh. She has routine ECHO evaluations with the last one being in october 2016, this revealed moderate thickening of the aortic valve with mild stenosis, EF 65-70%. A significant change from 2016. She was scheduled to have a repeat echocardiogram tomorrow. However, this has been canceled. A repeat echo was done here. I have reviewed it and the aortic valve appears thickened by is not significantly stenosed. She does appear to have some systolic anterior motion of the anterior aortic valve that may be attributing to the elevated mean gradient. Her EF is normal at 60%. She has moderate MR and moderate PHTN. Today, she continues to feel a bit better. She states she hasn't been up yet. She does complain of dizziness at times. She continues to complain of back pain. She is eating better. She is still weak but only required one assist to get up to BR. No further ectopy. Her Mag was quite low at 1.2. Will replace. She denies CP, palp, SOA, nausea, vomiting, diarrhea. No abdominal pain. Had a moderate sized BM this am. No mention of being loose. Her BP are running a little high. Will restart her home norvasc and a bbl. I would avoid diuretics on her due to the appearance of EDDA with possible outflow tract obstruction. HR are fine. Objective Vital signs: Temperature 98.2 F 04/20/17 07:56 Pulse Rate 78 04/20/17 08:00 Respiratory Rate 16 04/20/17 07:56 Blood Pressure 141/75 H 04/20/17 07:56 Pulse Oximetry 95 04/20/17 07:56 Height/Weight/BMI: Height 1.6 m Weight 64.9 kg Body Mass Index 22.9 Comments: Gen: alert and oriented. NAD Skin: warm and dry HEENT: NC/AT PERRL, EOMI, Sclera, lids and conjunctiva wnl, dry MM, OP clear Neck: supple. No JVD, Carotids 2+ without bruits. Lungs: clear, No rales, rhonchi, wheezes. CV: regular. 3/6 ALLEN no radiation to carotids. Abd: soft. NT/ND, +BS MS: No edema. Reasonable strength Neuro: No focal deficit Results - Labs CBC & Chem 7: 04/20/17 04:33 04/20/17 04:33 Assessment and Plan (1) Hypokalemia Problem details: Potassium 2.2 on admission Current visit: Yes Status: Acute (2) Weakness Current visit: Yes Status: Acute (3) Syncope Current visit: Yes Status: Acute (4) Hyponatremia Problem details: Sodium 122 on admission Current visit: Yes Status: Acute Assessment and Plan: 1. Significant weakness -likely related to dehydration and hypokalemia 2. Hypokalemia, critical -Low normal at present, will replace again today -Start daily dosing -Follow labs 3. Hyponatremia -Improved -Continue to follow 4. Anorexia -add supplements -Encourage po intake 5. Recent syncopal episode(?)- 04/12/17 -Possibly due to dehydration/orthostatic vs hypokalemia/arrhythmia 6. VHD -Aortic stenosis/Possible LVOT obstruction with EDDA -would avoid dehydration!! -Moderate MR -Mild TR 7. Diastolic heart failure -grade 2 7. HTN -Off home norvasc 2.5mg daily and atenolol/chlorthalidone 50/25mg daily -Resume home norvasc. Start low dose BBL with lopressor 12.5 bid for rhythm and BP. 8. Arrhythmia -SVT -Restart low dose BBl -Low Mag-replacing, will recheck in am -Continue to follow. 9. Anemia -?acute vs chronic -dilutional -check iron panel and stools for OB -Stable 10. Dyslipidemia -On statin 11. GERD -On PPI 12. Moderate PHTN 13. Constipation -Senna, miralax 14. Prophylaxis -PPI 15. Dispo -PT recommends SKilled nsg Family in room. Discussed pts progress with them. Questions answered. Hospital Course Summary Disclaimer: The visit summary below is not to be considered part of the above Progress Note. Hospital Course: 04/17/17 Impression Significant weakness Hypokalemia Hyponatremia Anorexia Recent syncopal episode- 04/12/17 Aortic Stenosis HTN Dyslipidemia GERD Plan Admit patient to inpatient status under the care of Dr Daigle for weakness and electrolyte abnormalities. Patient was given oral potassium supplementation 40 milliequivalents as well as IV potassium with normal saline infusion while in the emergency room. We'll plan to recheck electrolytes this afternoon at 1600 and then again at 2200. Will then add additional supplementation after that. Will monitor serial electrolytes closely. Patient cardiac telemetry given the left foot abnormalities. Given patient's syncopal episode and reported change in her hearing. Will obtain a CT scan of the head to rule out an acute intracranial abnormality or hemorrhage. Patient does have known aortic stenosis with last echo being in October. We will repeat this today and consult Dr. Blas for cardiac recommendations. She may have a clear liquid diet as she is able to tolerate She has not had any home medications for approximately 1 week, including potassium, as well as aspirin and blood pressure medications. Currently, blood pressure is stable. Will continue to monitor. Obtain magnesium and TSH for laboratory completeness on admission SCDs to bilateral lower extremity for DVT prophylaxis Patient is more medically stable, she would benefit from PT and OT consultation. Given that she is significantly weak and is independent at baseline. Again she does request to be a Full Code and this order is written. At time of discharge her medical care will return to PCP Dr. Alatorre
[2017-04-20] MEDS: AMLODIPINE 2.5 MG TABLET PO SCH (12:01)
[2017-04-21 01:59] VITALS: RESP 16
[2017-04-21] MEDS: HYDROCODONE/APAP 10 MG/325 MG TABLET PO PRN ×2 (04:37→13:28)
[2017-04-21] MEDS: OMEPRAZOLE 20 MG CAPSULE PO SCH (05:32)
[2017-04-21 07:22] VITALS: BP 129/69; TEMP 98.5; O2SAT 93
[2017-04-21] MEDS: AMLODIPINE 2.5 MG TABLET PO SCH (08:26)
[2017-04-21] MEDS: ROSUVASTATIN 5 MG TABLET PO SCH (08:26)
[2017-04-21] MEDS: POLYETHYL GLYCOL 3350 17gm PACKET PO SCH (08:29)
[2017-04-21] MEDS: SENNA + DOCUSATE TABLET PO SCH (08:29)
[2017-04-21 10:04] VITALS: PULSE 73
--- NOTE | 2017-04-21 14:34 | Progress Note ---
<Albertina You - Last Filed: 04/21/17 14:31> - Date 04/21/17 Subjective: Patient is seen today sitting up in her chair. She reports she is ready to go home today. She feels she is stronger. Nurse reports patient seems to be doing much better today. She reports she is eating and drinking ok. Bowels are moving. Objective Vital signs: Temperature 98.5 F 04/21/17 07:18 Pulse Rate 73 04/21/17 08:00 Respiratory Rate 16 04/21/17 07:18 Blood Pressure 129/69 04/21/17 07:18 Pulse Oximetry 93 04/21/17 07:18 Height/Weight/BMI: Height 1.6 m Weight 64.2 kg Body Mass Index 22.9 - Constitutional Present: well nourished, well developed - Routine HEENT Exam Head: Present: normocephalic, atraumatic - Routine Respiratory Exam Present: CTA bilaterally. Absent: wheezes - Routine Cardiovascular Exam Present: RRR, murmur (3/6 ALLEN) - Routine Abdominal Exam Present: soft, normoactive bowel sounds, non distended. Absent: tenderness - Routine Extremities Exam Present: no edema, normal capillary refill - Routine Skin Exam Present: dry, warm - Routine Neurological Exam Present: alert, moving all extremities, normal speech - Routine Lymphatic Exam Lymphatic: Absent: adenopathy - Routine Psychiatric Exam Present: normal affect, cooperative Results - Labs CBC & Chem 7: 04/21/17 05:06 04/21/17 05:06 Labs: Laboratory Tests 04/17/17 04/18/17 04/19/17 11:53 05:13 04:29 Potassium 2.2 L* 3.3 L D 3.6 04/21/17 05:06 Potassium 3.5 L Assessment and Plan (1) Hypokalemia Problem details: Potassium 2.2 on admission Current visit: Yes Status: Acute (2) Weakness Current visit: Yes Status: Acute (3) Syncope Current visit: Yes Status: Acute (4) Hyponatremia Problem details: Sodium 122 on admission Current visit: Yes Status: Acute Assessment and Plan: Assessment Significant weakness-likely related to dehydration and hypokalemia Hypokalemia, critical (POA) Hyponatremia Anorexia Recent syncopal episode(?)- 04/12/17 -Possibly due to dehydration/orthostatic vs hypokalemia/arrhythmia VHD -Aortic stenosis/Possible LVOT obstruction with EDDA -would avoid dehydration!! Diastolic heart failure-grade 2 HTN Arrhythmia-SVT Anemia- acute vs chronic Dyslipidemia GERD Moderate PHTN Plan Patient is feeling much stronger. She wants to go home. PT had recommended skilled on Friday, but in discussion with them today, she was able to ambulate 75 feet in the diaz, and her strength is improved. At this point, it would not be unreasonable to send her home with home health and a front-wheeled walker. Her potassium has needed replacement every day since admission despite discontinuation of chlorthalidone. Will continue KCl 20mEq daily and have Dr. Alatorre follow up her potassium level at post-hospital visit. Question if her anemia is dilutional. Can pursue OP w-u if this is new for patient. Hospital Course Summary Disclaimer: The visit summary below is not to be considered part of the above Progress Note. Hospital Course: Impression Significant weakness Hypokalemia Hyponatremia Anorexia Recent syncopal episode- 04/12/17 Aortic Stenosis HTN Dyslipidemia GERD 04/17/17-hospital admission Admit patient to inpatient status under the care of Dr Daigle for weakness and electrolyte abnormalities. Patient was given oral potassium supplementation 40 milliequivalents as well as IV potassium with normal saline infusion while in the emergency room. We'll plan to recheck electrolytes this afternoon at 1600 and then again at 2200. Will then add additional supplementation after that. Will monitor serial electrolytes closely. Patient cardiac telemetry given the left foot abnormalities. Given patient's syncopal episode and reported change in her hearing. Will obtain a CT scan of the head to rule out an acute intracranial abnormality or hemorrhage. Patient does have known aortic stenosis with last echo being in October. We will repeat this today and consult Dr. Blas for cardiac recommendations. She may have a clear liquid diet as she is able to tolerate She has not had any home medications for approximately 1 week, including potassium, as well as aspirin and blood pressure medications. Currently, blood pressure is stable. Will continue to monitor. Obtain magnesium and TSH for laboratory completeness on admission SCDs to bilateral lower extremity for DVT prophylaxis Patient is more medically stable, she would benefit from PT and OT consultation. Given that she is significantly weak and is independent at baseline. Again she does request to be a Full Code and this order is written. At time of discharge her medical care will return to PCP Dr. Alatorre 04/18/17 Electrolytes showing improvement with K up to 3.3 and Na stable at 130; urine creatinine 29.9, Na 25 (L), osm pending. Oral intake improving - reduce rate of IVF. Continue oral replacement of K. BMP in am. Seen by cardiology today; repeat echo pending. Hgb decreased to 10.5 - repeat CBC in am. PT/OT eval pending (pt refused x2) - RN will call them next time she needs to get up for the bathroom so they can at least get a preliminary assessment. TSH normal at 1.6. Head CT - mild atrophy; no acute findings. 04/19/17 Potassium low again today, will replace. 04/20/17 Potassium replaced again today. Encourage by mouth intake Home Norvasc resumed. Lopressor 12.5 twice a day started for rhythm control and blood pressure. IV magnesium replacement due to hypomagnesemia 04/21/17 Patient is feeling much stronger. She wants to go home. PT had recommended skilled on Friday, but in discussion with them today, she was able to ambulate 75 feet in the diaz, and her strength is improved. At this point, it would not be unreasonable to send her home with home health and a front-wheeled walker. Her potassium has needed replacement every day since admission despite discontinuation of chlorthalidone. Will continue KCl 20mEq daily and have Dr. Alatorre follow up her potassium level at post-hospital visit. Question if her anemia is dilutional. Can pursue OP w-u if this is new for patient. <Valdemar Tomas D - Last Filed: 04/21/17 15:50> - Date 04/21/17 Objective Vital signs: Temperature 98.5 F 04/21/17 07:18 Pulse Rate 73 04/21/17 08:00 Respiratory Rate 16 04/21/17 07:18 Blood Pressure 129/69 04/21/17 07:18 Pulse Oximetry 93 04/21/17 07:18 Height/Weight/BMI: Height 1.6 m Weight 64.2 kg Body Mass Index 22.9 Results - Labs CBC & Chem 7: 04/21/17 05:06 04/21/17 05:06 Assessment and Plan (1) Hypokalemia Problem details: Potassium 2.2 on admission Current visit: Yes Status: Resolved (2) Weakness Current visit: Yes Status: Resolved (3) Syncope Current visit: Yes Status: Resolved (4) Hyponatremia Problem details: Sodium 122 on admission Current visit: Yes Status: Resolved Assessment and Plan: Assessment Hypokalemia, critical (POA) Hyponatremia (POA) Significant weakness-likely related to dehydration and hypokalemia Anorexia Recent syncopal episode(?)- 04/12/17 -Possibly due to dehydration/orthostatic vs hypokalemia/arrhythmia VHD -Aortic stenosis/Possible LVOT obstruction with EDDA -would avoid dehydration!! Diastolic heart failure-grade 2 HTN Arrhythmia-SVT Anemia- acute vs chronic Dyslipidemia GERD Moderate PHTN Have independently interviewed & examined pt. Chart reviewed. Case discussed with CM & my PA. Care plan developed with my supervision; agree with above. Doing better-less weak and unsteady. Able to get around better. Breathing well. Eating well. Feels ready for discharge to home. CV: regular with murmur Lungs: clear bilaterally AB: soft nt/nd +BS Plan: Will discharge to home. Encourage fluid consumption to minimize dehydration. Monitor BMP in outpatient setting. F/U with Dr Alatorre in 1 week. See orders for details. Hospital Course Summary Disclaimer: The visit summary below is not to be considered part of the above Progress Note.
--- NOTE | 2017-04-21 15:11 | Discharge Summary ---
<Albertina You - Last Filed: 04/21/17 15:46> Discharge Information Date of admission: 04/17/17 13:26 Anticipated date of discharge: 04/21/17 Attending Physician: Valdemar Tomas MD Primary care physician: Ole Alatorre MD Consults: 04/17/17 13:44 Physician Consult [CONS] Routine Consulting Provider: Donald Blas Reason For Exam: aortic stenosis Ordering Provider has Notified Securities Research Analyst: Yes Comment: seen in er by doctor - Discharge Diagnosis (1) Hypokalemia Status: Resolved (2) Weakness Status: Resolved (3) Syncope Status: Resolved (4) Hyponatremia Status: Resolved Hypokalemia, critical (POA) Significant weakness-likely related to dehydration and hypokalemia Hyponatremia Anorexia Recent syncopal episode(?)- 04/12/17 -Possibly due to dehydration/orthostatic vs hypokalemia/arrhythmia VHD -Aortic stenosis/Possible LVOT obstruction with EDDA -would avoid dehydration!! Diastolic heart failure-grade 2 HTN Arrhythmia-SVT Anemia- acute vs chronic Dyslipidemia GERD Moderate PHTN - Procedures Procedures: Date of Exam: 04/17/17 Type of Exam(s): US echo doppler complete DATE OF PROCEDURE April 17, 2017. This is a two-dimensional echo with spectral Doppler, color-flow and M-mode. It was obtained in a patient with aortic stenosis and weakness. Left atrial dimension is normal. Left ventricular end-diastolic dimension is normal. Left ventricular wall thickness is normal. LV systolic function is normal with ejection fraction of 60%. Right atrium is normal. Right ventricle is normal. Mitral valve annulus is calcified. Mitral valve leaflets are normal with qlxe-vm-eixhaidt mitral regurgitation. Aortic valve shows fibrocalcific changes with restriction on opening motion. Transaortic velocities are increased with peak velocity of 3.8 m/sec with peak gradient of 58 and mean gradient of 34. Aortic valve area is calculated at 1.2 cm2. There is no aortic insufficiency. Tricuspid valve shows [id number] tricuspid regurgitation with moderate pulmonary hypertension with estimated pulmonary artery systolic pressure of 50. Pulmonary valve shows mild pulmonary insufficiency. There is no pericardial effusion. IMPRESSION 1. Normal LV systolic function with ejection fraction of 60%. 2. Mitral annulus calcification with ozoh-qz-neepscij mitral regurgitation. 3. Moderate aortic stenosis with a valve area of 1.2 cm2. 4. Mfcw-pl-tisfuwby tricuspid regurgitation with moderate pulmonary hypertension with estimated pulmonary artery systolic pressure of 50. 5. Mild pulmonary insufficiency. - Laboratory Labs: 04/21/17 05:06 04/21/17 05:06 - Radiology Radiology: Date of Exam: 04/17/17 Ordering Provider: Alec Chrsitian DO Type of Exam(s): XR chest 1V Reason for Exam(s): Weakness FINDINGS: The lungs are clear. There is no abnormal airspace opacity, pleural effusion or pneumothorax identified. Overlying monitoring leads. The heart size, pulmonary vasculature and mediastinum are within normal limits. No significant skeletal abnormality is seen. IMPRESSION: No acute cardiopulmonary abnormality. Date of Exam: 04/17/17 Ordering Provider: Lyudmila Hutchins APRN Indication: syncopal episode, hearing deficit, weakness PROCEDURE: CT head/brain wo con: FINDINGS: Mild generalized atrophy. The ventricles are of normal size, shape, and contour for the patient's age. There are scattered areas of low attenuation in the white matter which most likely represent changes from chronic microvascular ischemia. The brainstem, cerebellum, and cerebral hemispheres otherwise have a normal morphology and CT attenuation. There is no evidence of midline displacement. No hemorrhage, signs of acute territorial stroke, mass effect, mass lesions, or edema is evident. The visualized portions of the skull base, midface, and calvarium demonstrate no abnormality. The paranasal sinuses are well aerated and free of significant disease. The tympanic and mastoid cavities appear normal. IMPRESSION: No acute intracranial abnormality or hemorrhage. History of Present Illness HPI: Michelle is a pleasant 81-year-old female who presents to the emergency room today for evaluation of acute weakness and anorexia for one week. Her reports that she has been ill for 7 days, last Friday on 04/12. She had a syncopal episode and was assisted up by her and son. Since that time she has continued to grow more week and is unable to take in any oral nutrition or medications. This morning she was so weak. She is not able to ambulate by herself. Has been also reports a cough over the last 2 days. This seems to be getting worse. Further medical evaluation did reveal decreased sodium of 122, and critically low potassium of 2.2. BUN is 22, creatinine 0.9. The WBC count is normal. Hemoglobin slightly down, 11.3. Urinalysis was unremarkable. Twelve- lead EKG performed showing sinus bradycardia rate of 53. Chest x-ray was performed. Given cough, however, did not show any acute process. Given severity of weakness, accompanied with electrolyte abnormalities. The hospitalist services were contacted and accepted patient for inpatient admission for further evaluation and treatment. It is expected that her stay will be greater than 2 overnights. Michelle is seen on initial examination. She is alert and oriented, however, appears lethargic and weak during exam. does note since this acute illness. She is having significant change in hearing with increased deficit. She does not complain of any pain or appreciate any specific unilateral weakness , rather a generalized lethargy. Patient has known aortic stenosis and is followed under the cardiology care of Dr King Leigh. She has routine ECHO evaluations with the last one being in october 2016, this revealed moderate thickening of the aortic valve with mild stenosis, EF 65-70%. A significant change from 2016. She was scheduled to have a repeat echocardiogram tomorrow. However, this is been canceled. We did discuss advanced directives and she does wish to be a full code. Objective Vital signs: Temperature 98.5 F 04/21/17 07:18 Pulse Rate 73 04/21/17 08:00 Respiratory Rate 16 04/21/17 07:18 Blood Pressure 129/69 04/21/17 07:18 Pulse Oximetry 93 04/21/17 07:18 Height/Weight/BMI: Height 1.6 m Weight 64.2 kg Body Mass Index 22.9 - Constitutional Present: no acute distress, well nourished, well developed - Routine Respiratory Exam Present: CTA bilaterally. Absent: wheezes - Routine Cardiovascular Exam Present: RRR, murmur (3/6 ALLEN) - Routine Abdominal Exam Present: soft, normoactive bowel sounds, non distended. Absent: tenderness - Routine Extremities Exam Present: no edema, normal capillary refill - Routine Skin Exam Present: dry, warm - Routine Neurological Exam Present: alert, normal speech - Routine Lymphatic Exam Lymphatic: Absent: adenopathy - Routine Psychiatric Exam Present: normal affect, cooperative Hospital Course This is a general summary of the patient's hospital course. For more details refer to the complete medical record. Hospital course: 04/17/17-hospital admission Admit patient to inpatient status under the care of Dr Daigle for weakness and electrolyte abnormalities. Patient was given oral potassium supplementation 40 milliequivalents as well as IV potassium with normal saline infusion while in the emergency room. We'll plan to recheck electrolytes this afternoon at 1600 and then again at 2200. Will then add additional supplementation after that. Will monitor serial electrolytes closely. Patient cardiac telemetry given the left foot abnormalities. Given patient's syncopal episode and reported change in her hearing. Will obtain a CT scan of the head to rule out an acute intracranial abnormality or hemorrhage. Patient does have known aortic stenosis with last echo being in October. We will repeat this today and consult Dr. Blas for cardiac recommendations. She may have a clear liquid diet as she is able to tolerate She has not had any home medications for approximately 1 week, including potassium, as well as aspirin and blood pressure medications. Currently, blood pressure is stable. Will continue to monitor. Obtain magnesium and TSH for laboratory completeness on admission SCDs to bilateral lower extremity for DVT prophylaxis Patient is more medically stable, she would benefit from PT and OT consultation. Given that she is significantly weak and is independent at baseline. Again she does request to be a Full Code and this order is written. At time of discharge her medical care will return to PCP Dr. Alatorre 04/18/17 Electrolytes showing improvement with K up to 3.3 and Na stable at 130; urine creatinine 29.9, Na 25 (L), osm pending. Oral intake improving - reduce rate of IVF. Continue oral replacement of K. BMP in am. Seen by cardiology today; repeat echo pending. Hgb decreased to 10.5 - repeat CBC in am. PT/OT eval pending (pt refused x2) - RN will call them next time she needs to get up for the bathroom so they can at least get a preliminary assessment. TSH normal at 1.6. Head CT - mild atrophy; no acute findings. 04/19/17 Potassium low again today, will replace. 04/20/17 Potassium replaced again today. Encourage by mouth intake Home Norvasc resumed. Lopressor 12.5 twice a day started for rhythm control and blood pressure. IV magnesium replacement due to hypomagnesemia 04/21/17 Patient is feeling much stronger. She wants to go home. PT had recommended skilled on Friday, but in discussion with them today, she was able to ambulate 75 feet in the diaz, and her strength is improved. At this point, it would not be unreasonable to send her home with home health and a front-wheeled walker. Her potassium has needed replacement every day since admission despite discontinuation of chlorthalidone. Will continue KCl 20mEq daily and have Dr. Alatorer follow up her potassium level at post-hospital visit. Question if her anemia is dilutional. Can pursue OP w-u if this is new for patient. Time spent with patient: discharge greater than 30 minutes DVT Prophylaxis: SCD's GI Prophylaxis: other (omeprazole) Discharge Plan - Discharge Disposition Discharge Date: 04/21/17 Disposition: [facility] Health Service *Condition: Stable Reason For Visit (Visit label in EMR): hypokalemia,hyponatremia,weakness - Discharge Medications *Discharge Medications: New Potassium Chloride 20 meq PO DAILY #30 tab Metoprolol Tartrate [Lopressor] 12.5 mg PO BIDWM #30 tab Continue Amlodipine [Norvasc] 2.5 mg PO DAILY Hydrocodone/APAP 10/325 [[place]bird 10/325] 1 tab PO QID PRN PRN Reason: Pain Aspirin/Caffeine [Jenn [employer] Caplet] 2 tab PO Q4H PRN PRN Reason: Pain Omeprazole 20 mg PO DAILY #0 Rosuvastatin [Crestor] 5 mg PO DAILY #0 Acetaminophen [Acetaminophen Extra Strength] 1,000 mg PO Q6H PRN PRN Reason: Pain Discontinued Potassium Chloride [K-Tab ER] 20 meq PO BID Atenolol/Chlorthalidone [Atenolol-Chlorthalidone 50-25] 1 tab PO DAILY - Discharge Packet/Instructions *Diet: regular diet. Make sure to drink fluids throughout the day. If you aren 't hungry, you need to at least drink a meal replacement for nutrition and strength. *Activity: Up as tolerated. Use walker when up. *Pain Management/Treatment: n/a *Wound Care: n/a Additional Instructions: You will need follow up blood work at your appointment with Dr. Alatorre. *Expected Signs/Symptoms: Continued increase in strength *Notify Physician if: You pass out, become short of breath or develop chest pain , or get proressively weaker. *During Business Hours Contact: Dr Alatorre' office *After Business Hours Contact: Dr Alatorre' office and follow after hours instructions. *Pending Lab/Results: No Pending Lab - Referrals/Follow Up *Referrals/Follow Up: Ole Alatorre MD [Primary Care Provider] - 1 Week (Friday, 2016 at 9:15am) - Patient Handouts Patient Handouts: Hyponatremia (GEN), Hypokalemia (GEN), Weakness (GEN) - Dismissal Complete Discharge Instructions are:: Complete <Valdemar Tomas - Last Filed: 04/21/17 17:08> Discharge Information Date of admission: 04/17/17 13:26 Attending Physician: Valdemar Tomas MD Primary care physician: Ole Alatorre MD Consults: 04/17/17 13:44 Physician Consult [CONS] Routine Consulting Provider: Donald Blas Reason For Exam: aortic stenosis Ordering Provider has Notified Securities Research Analyst: Yes Comment: seen in er by doctor - Discharge Diagnosis (1) Hypokalemia Status: Resolved (2) Weakness Status: Resolved (3) Syncope Status: Resolved (4) Hyponatremia Status: Resolved - Laboratory Labs: 04/21/17 05:06 04/21/17 05:06 Objective Vital signs: Temperature 98.5 F 04/21/17 07:18 Pulse Rate 73 04/21/17 08:00 Respiratory Rate 16 04/21/17 07:18 Blood Pressure 129/69 04/21/17 07:18 Pulse Oximetry 93 04/21/17 07:18 Height/Weight/BMI: Height 1.6 m Weight 64.2 kg Body Mass Index 22.9 Hospital Course This is a general summary of the patient's hospital course. For more details refer to the complete medical record. Attestation Narriative - Attestation Attestation Narrative: 04/21/17 17:07 I have independently interviewed and examined patient prior to discharge. See my progress note from today for details. Medically stable for discharge.
== END 2017-04-21 16:17 | disposition home or self-care (01) | DRG 641 ==
LOC: ED 11:15 → SUATTDRO 13:26 → MED 13:26
PROVIDERS: ADMIT Internal Medicine; ATTEND Hospitalist